=== PATIENT | male | born 1980 | race Caucasian/White ===

== ENCOUNTER 2025-08-17 10:14 | Emergency (ER) | payer OTHER, SELFPAY ==
[2025-08-17 10:15] VITALS: BP 146/91; PULSE 76; RESP 18; TEMP 37.1; O2SAT 98; BMI 30.8
--- NOTE | 2025-08-17 10:27 | RAD_ITS ---
PROCEDURE: SHOULDER MIN 2 VIEWS 08/17/2025 REASON FOR EXAM: INJURY TECHNIQUE: Procedure Code: RADSH Modality: DX Procedure: SHOULDER MIN 2 VIEWS Laterality: Right COMPARISON: None. FINDINGS: Bones: No acute bony abnormalities. Joints: Well aligned. Soft tissues: No soft tissue abnormalities. RAD/Shoulder min 2 Views IMPRESSION: No acute osseous abnormalities. Reading Location: [id number]
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
--- OUTSIDE RECORDS SUMMARY | 2025-08-17 10:49 | XMS RPT_ITS | CCD ---
Author Organization [facility] Care Team Providers Care Slot Floor Person Name Role Phone Alycia Luc Unavailable Unavailable UNKNOWN, PROVIDER Unavailable Unavailable Petrilla, Guillermo Unavailable Unavailable Cullado, Luc Unavailable Unavailable UNKNOWN, PROVIDER Unavailable Unavailable Petrilla, Guillermo Unavailable Unavailable Naunlla Guillermo [place] Primary Care Provider [phone] Guillermo Cheng DO Primary Care Provider Guillermo Cheng DO Primary Care Provider [phone] Dr. Guillermo Cheng DO Primary Care Provider Dr. Guillermo Cheng DO Referring Provider [phone] James ABREU-CMitzy Attending Provider Mitzy Ramirez Attending Unavailable Petrilla, Guillermo Primary Care Unavailable Petrilla, Guillermo Referring Unavailable Mitzy Ramirez Attending Unavailable Petrilla, Guillermo Primary Care Unavailable Petrilla, Guillermo Referring Unavailable Petrilla, Guillermo Primary Care Unavailable Petrilla, Guillermo Referring Unavailable Mitzy Ramirez Attending Unavailable PETRILLA, GUILLERMO Attending Unavailable PETRILLA, GUILLERMO Referring Unavailable PETRILLA, GUILLERMO Primary Care Unavailable PETRILLA, GUILLERMO Primary Care Unavailable PETRILLA, GUILLERMO Attending Unavailable PETRILLA, GUILLERMO Primary Care Unavailable PETRILLA, GUILLERMO Attending Unavailable Medications Current Medications Medication Drug Class(es) Dates Sig (Normalized) Sig (Original) Blood-Glucose Sensor (Dexcom G6 Sensor) device (9 sources) Start: 01-07-2025 Blood-Glucose Sensor (Dexcom G6 Sensor) device Active 0 .Route 3 January 07, 2025 12:00am Type 1 diabetes mellitus with hyperglycemia Type 1 diabetes mellitus with hyperglycemia 1 sensor q 10 days Start: 10-15-2024 End: 01-07-2025 Blood-Glucose Sensor (Dexcom G6 Sensor) device Discontinued 0 .Route 9 October 15, 2024 10:49am January 07, 2025 1:30pm Diabetes mellitus Type 2 diabetes mellitus with hyperglycemia long term acute care registered nurse (current) use of insulin 1 sensor q 10 days Start: 10-15-2024 End: 10-15-2024 Blood-Glucose Sensor (Dexcom G6 Sensor) device Discontinued 0 .Route 9 October 15, 2024 8:29am October 15, 2024 10:49am Diabetes mellitus Type 2 diabetes mellitus with hyperglycemia long term acute care registered nurse (current) use of insulin 1 sensor q 10 days Start: 06-22-2024 End: 10-15-2024 Blood-Glucose Sensor (Dexcom G6 Sensor) device Discontinued 0 .Route 9 June 22, 2024 9:27am October 15, 2024 8:29am Diabetes mellitus Type 2 diabetes mellitus with hyperglycemia long term acute care registered nurse (current) use of insulin 1 sensor q 10 days Start: 05-18-2024 End: 06-22-2024 Blood-Glucose Sensor (Dexcom G6 Sensor) device Discontinued 0 .Route 3 6 May 18, 2024 5:28pm June 22, 2024 9:30am Diabetes mellitus Type 2 diabetes mellitus with hyperglycemia long term acute care registered nurse (current) use of insulin 1 sensor q 10 days Start: 02-28-2024 End: 05-18-2024 Blood-Glucose Sensor (Dexcom G6 Sensor) device Discontinued 0 .Route 3 0 February 28, 2024 9:39am May 18, 2024 5:28pm Diabetes mellitus Type 2 diabetes mellitus with hyperglycemia half-way (current) use of insulin 1 sensor q 10 days Start: 02-27-2024 End: 02-28-2024 Blood-Glucose Sensor (Dexcom G6 Sensor) device Discontinued 0 .Route 3 0 February 27, 2024 12:00am February 28, 2024 9:39am Diabetes mellitus Type 2 diabetes mellitus with hyperglycemia half-way (current) use of insulin 1 sensor q 10 days Start: 08-05-2022 End: 08-05-2022 Blood-Glucose Sensor (Dexcom G6 Sensor) device Discontinued 0 .Route 3 August 05, 2022 3:41pm August 05, 2022 3:51pm Type 1 diabetes mellitus with hyperglycemia Type 1 diabetes mellitus with hyperglycemia 1 sensor q 10 days Start: 08-05-2022 End: 08-05-2022 Blood-Glucose Sensor (Dexcom G6 Sensor) device Discontinued 0 .Route 3 August 05, 2022 12:00am August 05, 2022 3:42pm Type 1 diabetes mellitus with hyperglycemia Type 1 diabetes mellitus with hyperglycemia 1 sensor q 10 days Blood-Glucose Transmitter (Dexcom G6 Transmitter) device (6 sources) Start: 01-07-2025 Blood-Glucose Transmitter (Dexcom G6 Transmitter) device Active 0 .Route 1 January 07, 2025 12:00am Type 1 diabetes mellitus with hyperglycemia Type 1 diabetes mellitus with hyperglycemia 1 sensor q 90 days Start: 06-22-2024 End: 11-01-2024 Blood-Glucose Transmitter (D excom G6 Transmitter) device Discontinued 0 .Route 1 June 22, 2024 9:27am November 01, 2024 4:02pm Diabetes mellitus Type 2 diabetes mellitus with hyperglycemia half-way (current) use of insulin 1 transmitter q 90 days Start: 02-28-2024 End: 06-22-2024 Blood-Glucose Transmitter (D excom G6 Transmitter) device Discontinued 0 .Route 1 February 28, 2024 9:39am June 22, 2024 9:30am Diabetes mellitus Type 2 diabetes mellitus with hyperglycemia long term acute care registered nurse (current) use of insulin 1 transmitter q 90 days Start: 02-27-2024 End: 02-28-2024 Blood-Glucose Transmitter (D excom G6 Transmitter) device Discontinued 0 .Route 1 February 27, 2024 12:00am February 28, 2024 9:39am Diabetes mellitus Type 2 diabetes mellitus with hyperglycemia long term acute care registered nurse (current) use of insulin 1 transmitter q 90 days Start: 08-05-2022 End: 08-05-2022 Blood-Glucose Transmitter (D excom G6 Transmitter) device Discontinued 0 .Route 1 August 05, 2022 3:41pm August 05, 2022 3:51pm Type 1 diabetes mellitus with hyperglycemia Type 1 diabetes mellitus with hyperglycemia 1 transmitter q 90 days Start: 08-05-2022 End: 08-05-2022 Blood-Glucose Transmitter (D excom G6 Transmitter) device Discontinued 0 .Route 1 August 05, 2022 12:00am August 05, 2022 3:42pm Type 1 diabetes mellitus with hyperglycemia Type 1 diabetes mellitus with hyperglycemia 1 transmitter q 90 days Continuous Glucose Sensor (Dexcom G6 Sensor) misc (4 sources) Start: 10-15-2024 Continuous Glucose Sensor (Dexcom G6 Sensor) misc 1 sensor every 10 days 10/15/2024 Active doxycycline hyclate 100 mg oral capsule (3 sources) Tetracycline-class Drug Start: 10-11-2023 End: 10-21-2023 doxycycline (Vibramycin) 100 MG capsule Take 1 capsule (100 mg) by mouth 2 times daily for 10 days. Take with at least 8 ounces (large glass) of water, do not lie down for 30 minutes after 20 capsule 0 10/11/2023 10/21/2023 Active empagliflozin 25 mg oral tablet (6 sources) Sodium-Glucose Cotransporter 2 Inhibitor Start: 01-07-2025 End: 01-08-2025 take 25 mg by mouth once daily Jardiance 25 MG Take 25 mg by mouth daily. 01/08/2025 Active insulin lispro 100 unt/ml injectable solution (15 sources) Insulin Analog Start: 03-20-2024 Insulin Lispro (Humalog) 100 UNIT/ML solution injection Inject under the skin. 03/20/2024 Active Start: 03-20-2024 End: 04-03-2025 Insulin Lispro 100 unit/mL s olution Active 100 U SC DAILY 90 April 03, 2025 10:40am Type 1 diabetes mellitus with hyperglycemia Type 1 diabetes mellitus with hyperglycemia via insulin pump Start: 02-09-2024 End: 06-22-2024 Insulin Lispro 100 unit/mL i nsulin pen Discontinued 25 U SC THREE TIMES A DAY 15 April 05, 2024 10:33pm June 22, 2024 9:27am Type 1 diabetes mellitus with hyperglycemia Type 1 diabetes mellitus with hyperglycemia Insulin Pump Cart,Auto,Bt,G6 /7 (Omnipod 5 G6-G7 Pods (Gen 5)) cartridge (4 sources) Start: 05-20-2025 Insulin Pump C art,Auto,Bt,G6/7 (Omnipod 5 G6-G7 Pods (Gen 5)) cartridge Active 0 .Route 5 May 20, 2025 12:00am As directed Start: 04-03-2025 Insulin Pump C art,Auto,Bt,G6/7 (Omnipod 5 G6-G7 Pods (Gen 5)) cartridge Active 0 .Route 45 April 03, 2025 10:39am change every 36 hrs Start: 01-07-2025 End: 04-03-2025 Insulin Pump Cart,Auto,Bt,G6 /7 (Omnipod 5 G6-G7 Pods (Gen 5)) cartridge Discontinued 0 .Route 45 3 January 07, 2025 2:03pm April 03, 2025 10:40am change every 36 hrs Start: 11-01-2024 End: 01-07-2025 Insulin Pump Cart,Auto,Bt,G6 /7 (Omnipod 5 G6-G7 Pods (Gen 5)) cartridge Discontinued 0 .Route 30 3 November 01, 2024 1:00am January 07, 2025 2:04pm change every 3 days lisinopril 20 mg oral tablet (20 sources) Angiotensin Converting Enzyme Inhibitor Start: 07-22-2025 End: 07-23-2025 lisinopril 20 MG tablet One bid 180 tablet 1 07/23/2025 Active Start: 02-14-2025 End: 07-22-2025 lisinopril 10 MG tablet Take one 10 mg tab with a 30 mg tab q day to equal 40mg each day until they are gone, then call for 20mg tab prescription which should be taken one BID 50 tablet 1 02/14/2025 07/22/2025 Discontinued (Dose adjustment) Start: 02-11-2025 End: 02-11-2025 lisinopril 20 MG tablet One BID 180 tablet 1 02/11/2025 02/11/2025 Discontinued Start: 11-20-2022 End: 08-08-2025 take 1 tablet by mouth once daily Lisinopril 30 mg tablet Active 30 mg PO DAILY February 09, 2024 3:16pm Start: 08-05-2022 End: 02-09-2024 Lisinopril 30 mg tablet Disc ontinued NMA PO August 05, 2022 12:00am February 09, 2024 3:17pm Multivitamin (Daily Multi-Vitamin) tablet (1 source) Start: 08-05-2022 Multivitamin (Daily Multi-Vitamin) tablet Active 1 {tbl} PO DAILY August 05, 2022 12:00am rosuvastatin calcium 10 mg oral tablet (20 sources) HMG-CoA Reductase Inhibitor Start: 10-16-2023 End: 02-06-2026 take 1 tablet by mouth once daily rosuvastatin (Crestor) 10 MG tablet Take 1 tablet (10 mg) by mouth Nightly for 360 doses. 90 tablet 1 02/11/2025 02/06/2026 Active Start: 11-29-2022 End: 10-16-2023 take 1 tablet by mouth once daily rosuvastatin (Crestor) 5 MG tablet Take 1 tablet (5 mg) by mouth Nightly. 90 tablet 1 06/22/2023 10/16/2023 Discontinued Start: 08-05-2022 End: 10-20-2023 Rosuvastatin 5 mg tablet Discontinued NMA PO August 05, 2022 12:00am October 20, 2023 12:57pm sertraline 25 mg oral tablet (11 sources) Serotonin Reuptake Inhibitor Start: 05-17-2024 End: 02-11-2025 take 1 tablet by mouth once daily sertraline (Zoloft) 25 MG tablet Take 1 tablet (25 mg) by mouth daily. 90 tablet 1 02/11/2025 Active therapeutic multivitamin-minera ls (Theragran-M) tablet (18 sources) take 1 tablet by mouth once daily therapeutic multivitamin-blasting contract miner als (Theragran-M) tablet Take 1 tablet by mouth daily. Active take 1 tablet by mouth once josi y therapeutic multivitamin-minerals (Theragran- M) tablet Take 1 tablet by mouth daily. 0 Active Completed/Discontinued Medications Medication Drug Class(es) Dates Sig (Normalized) Sig (Original) [id number] actuat albuterol 0.09 mg/actuat metered dose inhaler (6 sources) beta2-Adrenergic Agonist Start: 10-11-2023 End: 10-10-2024 take 2 puff(s) by inhalation every four hours as needed for wheezing albuterol (Ventolin HFA) 108 (90 Base) MCG/ACT inhaler Inhale 2 puffs every 4 hours as needed for wheezing or shortness of breath. 8 g 5 10/11/2023 08/13/2024 Discontinued (Therapy completed) Blood-Glucose Sensor (Dexcom G7 Sensor) device (1 source) Start: 11-01-2024 End: 01-07-2025 Blood-Glucose Sensor (Dexcom G7 Sensor) device Discontinued 0 .Route 9 3 November 01, 2024 1:00am January 07, 2025 1:44pm As directed Blood-Glucose Sensor (Freestyle Malcom 3 Sensor) device (3 sources) Start: 05-27-2023 End: 10-20-2023 Blood-Glucose Sensor (Freestyle Malcom 3 Sensor) device Discontinued 0 .Route 6 1 May 27, 2023 12:44pm October 20, 2023 1:39pm 1 sensor q 14 days Start: 12-27-2022 End: 05-27-2023 Blood-Glucose Sensor (Freest yle Malcom 3 Sensor) device Discontinued 0 .Route 6 1 December 27, 2022 12:00am May 27, 2023 12:44pm 1 sensor q 14 days Start: 08-05-2022 End: 08-05-2022 Blood-Glucose Sensor (Freest yle Malcom 3 Sensor) device Discontinued 0 .Route 2 August 05, 2022 12:00am August 05, 2022 3:51pm Type 1 diabetes mellitus with hyperglycemia Type 1 diabetes mellitus with hyperglycemia As directed Blood-Glucose,Purse Seiner,Cont (Dexcom G6 Purse Seiner) misc (2 sources) Start: 08-05-2022 End: 08-05-2022 Blood-Glucose,Purse Seiner,Cont (Dexcom G6 Purse Seiner) misc Discontinued 0 .Route 1 0 August 05, 2022 3:41pm August 05, 2022 3:51pm Type 1 diabetes mellitus with hyperglycemia Type 1 diabetes mellitus with hyperglycemia As directed Start: 08-05-2022 End: 08-05-2022 Blood-Glucose,Purse Seiner,Cont (Dexcom G6 Purse Seiner) misc Discontinued 0 .Route 1 August 05, 2022 12:00am August 05, 2022 3:42pm Type 1 diabetes mellitus with hyperglycemia Type 1 diabetes mellitus with hyperglycemia As directed Continuous Blood Gluc Sensor (FreeStyle Malcom 2 Sensor) misc (14 sources) Start: 06-01-2023 End: 08-13-2024 Continuous Blood Gluc Sensor (FreeStyle Malcom 2 Sensor) misc Use qid and prn 1 each 1 06/01/2023 08/13/2024 Discontinued Start: 06-01-2023 Continuous Blo od Gluc Sensor (FreeStyle Malcom 2 Sensor) misc Use qid and prn 1 each 1 06/01/2023 Active Start: 05-27-2023 End: 05-31-2023 Continuous Blood Gluc Sensor (FreeStyle Malcom 2 Sensor) misc Use qid and prn 1 each 1 05/27/2023 05/31/2023 Discontinued (Reorder) Start: 05-27-2023 Continuous Blo od Gluc Sensor (FreeStyle Malcom 2 Sensor) misc Use qid and prn 1 each 1 05/27/2023 Active Start: 08-19-2022 End: 05-27-2023 Continuous Blood Gluc Sensor (FreeStyle Malcom 2 Sensor) misc Start: 08-19-2022 Continuous Blo od Gluc Sensor (FreeStyle Malcom 2 Sensor) misc Dulaglutide (1 source) GLP-1 Receptor Agonist Start: 08-05-2022 End: 12-27-2022 Dulaglutide (Trulicity) 4.5 mg/0.5 mL pen injector Discontinued mL SC August 05, 2022 12:00am December 27, 2022 2:05pm Flash Glucose Scanning [place] (Freestyle Malcom 2 [place]) misc (1 source) Start: 08-05-2022 End: 08-05-2022 Flash Glucose Scanning [place] (Freestyle Malcom 2 [place]) misc Discontinued 0 .Route 1 0 August 05, 2022 12:00am August 05, 2022 3:51pm Diabetes mellitus Type 2 diabetes mellitus without complications As directed Flash Glucose Sensor (Freestyle Malcom 2 Sensor) kit (8 sources) Start: 04-05-2024 End: 06-22-2024 Flash Glucose Sensor (Freestyle Malcom 2 Sensor) kit Discontinued 0 .ROUTE .MEDSUPPLY 2 4 April 05, 2024 10:33pm June 22, 2024 9:27am Type 1 diabetes mellitus with hyperglycemia Type 1 diabetes mellitus with hyperglycemia 1 sensor q 14 days Start: 02-20-2024 End: 04-05-2024 Flash Glucose Sensor (Freest yle Malcom 2 Sensor) kit Discontinued 0 .ROUTE .MEDSUPPLY 2 0 February 20, 2024 8:13am April 05, 2024 10:33pm Type 1 diabetes mellitus with hyperglycemia Type 1 diabetes mellitus with hyperglycemia 1 sensor q 14 days Start: 02-09-2024 End: 02-20-2024 Flash Glucose Sensor (Freest yle Malcom 2 Sensor) kit Discontinued 0 .ROUTE .MEDSUPPLY 2 5 February 09, 2024 4:31pm February 20, 2024 8:14am Type 1 diabetes mellitus with hyperglycemia Type 1 diabetes mellitus with hyperglycemia 1 sensor q 14 days Start: 10-20-2023 End: 02-09-2024 Flash Glucose Sensor (Freest yle Malcom 2 Sensor) kit Discontinued 0 .ROUTE .MEDSUPPLY 6 October 20, 2023 1:38pm February 09, 2024 4:35pm Type 1 diabetes mellitus with hyperglycemia Type 1 diabetes mellitus with hyperglycemia 1 sensor q 14 days Start: 09-14-2023 End: 10-20-2023 Flash Glucose Sensor (Freest yle Malcom 2 Sensor) kit Discontinued 0 .ROUTE .MEDSUPPLY 2 September 14, 2023 5:22pm October 20, 2023 1:39pm Type 1 diabetes mellitus with hyperglycemia Type 1 diabetes mellitus with hyperglycemia 1 sensor q 14 days Start: 01-13-2023 End: 09-14-2023 Flash Glucose Sensor (Freest yle Malcom 2 Sensor) kit Discontinued 0 .ROUTE .MEDSUPPLY 2 January 13, 2023 12:00am September 14, 2023 5:23pm Type 1 diabetes mellitus with hyperglycemia Type 1 diabetes mellitus with hyperglycemia 1 sensor q 14 days Start: 09-30-2022 End: 12-27-2022 Flash Glucose Sensor (Freest yle Malcom 2 Sensor) kit Discontinued 0 .Route 4 2 September 30, 2022 3:25pm December 27, 2022 2:24pm Diabetes mellitus Type 2 diabetes mellitus without complications As directed Start: 08-05-2022 End: 09-30-2022 Flash Glucose Sensor (Freest yle Malcom 2 Sensor) kit Discontinued 0 .Route 2 August 05, 2022 12:00am September 30, 2022 3:25pm Diabetes mellitus Type 2 diabetes mellitus without complications As directed glimepiride 4 mg oral tablet (1 source) Sulfonylurea Start: 08-05-2022 End: 08-05-2022 Glimepiride 4 mg tablet Discontinued NMA PO August 05, 2022 12:00am August 05, 2022 1:57pm 3 ml insulin aspart, human 100 unt/ml pen injector (16 sources) Insulin Analog Start: 12-06-2022 End: 08-13-2024 Fiasp FlexTouch 100 UNIT/ML injection 12 units at meals and 6 units with snacks 12/06/2022 08/13/2024 Discontinued Start: 08-05-2022 End: 02-09-2024 Insulin Aspart (Niacinamide) (Fiasp Flextouch U-100 Insulin) 100 unit/mL (3 mL) insulin pen Discontinued 15 U SC THREE TIMES A DAY 40.5 1 February 03, 2024 9:05am February 09, 2024 4:31pm Diabetes mellitus Type 2 diabetes mellitus without complications 3 ml insulin detemir 100 unt/ml pen injector (16 sources) Insulin Analog Start: 06-01-2023 End: 08-13-2024 Levemir FlexPen 100 UNIT/ML pen INJECT 23 UNITS UNDER THE SKIN NIGHTLY. 100 mL 2 02/03/2024 08/13/2024 Discontinued (Therapy completed) Start: 12-01-2022 End: 05-31-2023 Levemir FlexTouch 100 UNIT/M L pen 23 units at bedtime 0 12/01/2022 05/31/2023 Discontinued (Reorder) Start: 08-05-2022 End: 02-09-2024 Insulin Detemir U-100 (Levem ir Flextouch U-100 Insuln) 100 unit/mL (3 mL) insulin pen Discontinued 40 U SC AT BEDTIME 36 1 January 07, 2023 7:44am February 09, 2024 4:29pm Diabetes mellitus Type 2 diabetes mellitus without complications Insulin Pump Cart,Auto,Bt-Cn tr (Omnipod 5 G6 Intro Kit (Gen 5)) cartridge (2 sources) Start: 02-28-2024 End: 11-01-2024 Insulin Pump Cart,Auto,Bt-Cn tr (Omnipod 5 G6 Intro Kit (Gen 5)) cartridge Discontinued 0 .Route 1 February 28, 2024 9:39am November 01, 2024 4:02pm Diabetes mellitus Type 2 diabetes mellitus with hyperglycemia half-way (current) use of insulin As directed Start: 02-27-2024 End: 02-28-2024 Insulin Pump Cart,Auto,Bt-Cn tr (Omnipod 5 G6 Intro Kit (Gen 5)) cartridge Discontinued 0 .Route 1 February 27, 2024 12:00am February 28, 2024 9:39am Diabetes mellitus Type 2 diabetes mellitus with hyperglycemia long term acute care registered nurse (current) use of insulin As directed Insulin Pump Cart,Automated, Bt (Omnipod 5 G6 Pods (Gen 5)) cartridge (3 sources) Start: 06-22-2024 End: 11-01-2024 Insulin Pump Cart,Automated, Bt (Omnipod 5 G6 Pods (Gen 5)) cartridge Discontinued 0 .Route 10 June 22, 2024 9:30am November 01, 2024 4:02pm Diabetes mellitus Type 2 diabetes mellitus with hyperglycemia half-way (current) use of insulin 1 pod q 72 hours Start: 02-28-2024 End: 06-22-2024 Insulin Pump Cart,Automated, Bt (Omnipod 5 G6 Pods (Gen 5)) cartridge Discontinued 0 .Route 10 February 28, 2024 9:39am June 22, 2024 9:30am Diabetes mellitus Type 2 diabetes mellitus with hyperglycemia long term acute care registered nurse (current) use of insulin 1 pod q 72 hours Start: 02-27-2024 End: 02-28-2024 Insulin Pump Cart,Automated, Bt (Omnipod 5 G6 Pods (Gen 5)) cartridge Discontinued 0 .Route 10 February 27, 2024 12:00am February 28, 2024 9:39am Diabetes mellitus Type 2 diabetes mellitus with hyperglycemia long term acute care registered nurse (current) use of insulin 1 pod q 72 hours metFORMIN hydrochloride 500 mg oral tablet (1 source) Biguanide Start: 08-05-2022 End: 12-27-2022 Metformin 500 mg tablet Discontinued NMA PO August 05, 2022 12:00am December 27, 2022 2:05pm Ozempic, 0.25 or 0.5 MG/DOSE, 2 MG/3ML solution pen-injector (10 sources) Start: 04-14-2023 End: 02-11-2025 inject 0.5 mg by subcutaneous injection every week Ozempic, 0.25 or 0.5 MG/DOSE, 2 MG/3ML solution pen-injector 0.5 MG (0.8 ML) SUBCUTANEOUSLY EVERY WEEK 04/14/2023 02/11/2025 Discontinued (Cost of medication) Start: 04-14-2023 inject 0.5 mg by sub cutaneous injection every week Ozempic, 0.25 or 0.5 MG/DOSE, 2 MG/3ML solution pen-injector 0.5 MG (0.8 ML) SUBCUTANEOUSLY EVERY WEEK 04/14/2023 Active Start: 04-14-2023 inject 0.5 mg by sub cutaneous injection every week Ozempic, 0.25 or 0.5 MG/DOSE, 2 MG/3ML solution pen-injector 0.5 MG (0.8 ML) SUBCUTANEOUSLY EVERY WEEK 0 04/14/2023 Active Semaglutide (5 sources) Start: 08-16-2024 End: 09-19-2024 Semaglutide (Ozempic) 0.25 m g or 0.5 mg (2 mg/3 mL) pen injector Discontinued 0.5 mg SC EVERY WEEK 3 August 16, 2024 5:09pm September 19, 2024 3:14pm Diabetes mellitus Type 2 diabetes mellitus without complications Start: 06-22-2024 End: 08-16-2024 Semaglutide (Ozempic) 0.25 m g or 0.5 mg (2 mg/3 mL) pen injector Discontinued 0.5 mg SC EVERY WEEK 3 June 22, 2024 9:29am August 16, 2024 5:10pm Diabetes mellitus Type 2 diabetes mellitus without complications Start: 02-09-2024 End: 06-22-2024 Semaglutide (Ozempic) 0.25 m g or 0.5 mg (2 mg/3 mL) pen injector Discontinued 0.5 mg SC EVERY WEEK 3 February 09, 2024 12:00am June 22, 2024 9:30am Diabetes mellitus Type 2 diabetes mellitus without complications Start: 07-06-2023 End: 10-20-2023 Semaglutide (Ozempic) 0.25 m g or 0.5 mg (2 mg/3 mL) pen injector Discontinued 0.5 mg SC EVERY WEEK 3 July 06, 2023 12:41pm October 20, 2023 1:39pm Start: 04-14-2023 End: 07-04-2023 Semaglutide (Ozempic) 0.25 m g or 0.5 mg (2 mg/3 mL) pen injector Discontinued 0.5 mg SC EVERY WEEK 3 April 14, 2023 12:00am July 04, 2023 8:20am Semaglutide (1 source) Start: 07-04-2023 End: 07-06-2023 Semaglutide (Ozempic) 1 mg/d ose (4 mg/3 mL) pen injector Discontinued 1 mg SC EVERY WEEK 3 3 July 04, 2023 12:00am July 06, 2023 12:42pm Type 1 diabetes mellitus with hyperglycemia Type 1 diabetes mellitus with hyperglycemia Problems Active Problems Problem Classification Problem Date Documented Date Episodic/Chronic Anxiety disorders (11 sources) Mixed anxiety and depressive disorder; Translations: [Anxiety disorder, unspecified] Onset: 08-13-2024 08-13-2024 Chronic Chronic obstructive pulmonary disease and bronchiectasis (1 source) Bronchitis; Translations: [Bronchitis, not specified as acute or chronic] 10-11-2023 Episodic Diabetes mellitus with complications (3 sources) Hyperglycemia due to type 1 diabetes mellitus; Translations: [Type 1 diabetes mellitus with hyperglycemia] Onset: 06-03-2025 09-30-2022 Chronic Diabetes mellitus without complication (20 sources) Type 2 diabetes mellitus without complications; Translations: [Type 1 diabetes mellitus without complication] Onset: 09-30-2017 Resolved: 08-13-2024 Chronic Disorders of lipid metabolism (20 sources) Hypercholesterolemia; Translations: [Pure hypercholesterolemia, unspecified] Onset: 08-02-2019 07-23-2022 Chronic Essential hypertension (20 sources) Essential (primary) hypertension; Translations: [Essential hypertension] Onset: 09-30-2017 07-23-2022 Chronic Genitourinary symptoms and ill-defined conditions (2 sources) Microalbuminuria; Translations: [Proteinuria, unspecified] Onset: 06-03-2025 01-07-2025 Episodic Mood disorders (1 source) Depressive disorder; Translations: [Depression] 05-17-2024 Chronic Mood disorders (3 sources) Mood disorders; Translations: [Depression, unspecified] Onset: 08-13-2024 Other aftercare (1 source) long term acute care registered nurse current use of non-steroidal anti-inflammatory drug; Translations: [half-way (current) use of non-steroidal anti-inflammatories (NSAID)] 05-17-2024 Episodic Other endocrine disorders (2 sources) Testicular hypofunction; Translations: [Testicular hypofunction] Onset: 09-30-2017 Chronic Other nervous system disorders (3 sources) Left arm peripheral neuropathy; Translations: [Unspecified mononeuropathy of left upper limb] 02-11-2025 Chronic Other nervous system disorders (2 sources) Unspecified mononeuropathy of left upper limb; Translations: [Unspecified mononeuropathy of left upper limb] Onset: 03-01-2025 Chronic Other nutritional; endocrine; and metabolic disorders (2 sources) Overweight; Translations: [Overweight] Onset: 09-30-2017 Chronic Other nutritional; endocrine; and metabolic disorders (1 source) Obesity; Translations: [Obesity, unspecified] 04-14-2023 Chronic Other nutritional; endocrine; and metabolic disorders (1 source) Other obesity due to excess calories; Translations: [Other obesity due to excess calories] Onset: 08-16-2024 Chronic Other nutritional; endocrine; and metabolic disorders (1 source) Body mass index (BMI) 32.0-32.9, adult; Translations: [Body mass index [BMI] 32.0-32.9, adult] Onset: 08-16-2024 Chronic Unclassified (2 sources) half-way (current) use of oral hypoglycemic drugs; Translations: [half-way (current) use of oral hypoglycemic drugs] Onset: 09-30-2017 Past or Other Problems Problem Classification Problem Date Documented Date Episodic/Chronic Abdominal hernia (2 sources) Unilateral inguinal hernia, without obstruction or gangrene, not specified as recurrent; Translations: [Unil inguinal hernia, w/o obst or gangr, not spcf as recur] Onset: 09-30-2017 Episodic Diabetes mellitus without complication (2 sources) Insulin pump present; Translations: [Presence of insulin pump (external) (internal)] Onset: 08-16-2024 05-17-2024 Episodic Medical examination/evaluatio n (2 sources) Encounter for other preprocedural examination; Translations: [Encounter for other preprocedural examination] Onset: 09-27-2017 Episodic Other aftercare (3 sources) half-way (current) use of insulin; Translations: [long term acute care registered nurse (current) use of insulin] Onset: 07-23-2022 Episodic Other endocrine disorders (2 sources) Endocrine disorder, unspecified; Translations: [Endocrine disorder, unspecified] Onset: 09-30-2017 Episodic Unclassified (2 sources) Body mass index (BMI) 27.0-27.9, adult; Translations: [Body mass index (BMI) 27.0-27.9, adult] Onset: 09-30-2017 Episodic Viral infection (18 sources) Disease caused by 2019-nCoV; Translations: [COVID-19] Onset: 01-04-2022 Resolved: 08-13-2024 07-23-2022 Episodic Results Test Name Value Interpretation Reference Range Facility 36on 07-22-2025 36 Rx loaded Normal [facility] Endocrinology Visit Reporton 06-03-2025 Endocrinology Visit Report [facility] [address] [place] [address] OFFICE VISIT Date of Service: 06/03/25 MR#: [id number] Acct: [id number] Name: SATHYA MONTOYA Rep #: [id number] : 1980 Provider: ELINOR sharp Age/Sex: 44/M [place] [facility] [place]: Signed Intake Vital Signs 01/07/25 13:27 06/03/25 13:24 Height 6 ft 3 in 6 ft 3 in Weight: 253 lb 8 oz 246 lb BMI 31.6 30.7 BP 148/85 H 146/74 H Blood Pressure Location Lt brachial Lt brachial Position Sitting Sitting Pulse 68 64 Pulse Source Monitor Monitor Pulse Oximetry (%) 95 95 Oxygen Delivery Method room air room air Intake Visit Reasons: 5 M KALLIE MARY 12/13 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 Accompanied by: Self Is patient in pain?: No Allergies No Known Allergies Allergy (Verified 06/03/25 13:22) Medications ???Medication ???Instructions ???Recorded ???Confirmed ???Type multivitamin (Daily Multi-Vitamin 1 tab PO DAILY 08/05/22 06/03/25 History tablet) pen needle, diabetic 32 gauge x #100 ea 10/20/23 06/03/25 Rx / (BD Ultra-Fine Sandie Pen Needle) rosuvastatin 10 mg tablet 10 mg PO DAILY 10/20/23 06/03/25 H istory lisinopril 30 mg tablet 30 mg PO DAILY 02/09/24 06/03/25 H istory sertraline 25 mg tablet 25 mg PO DAILY #90 tabs 09/20/24 0 06/03/25 Rx blood-glucose sensor (Dexcom G6 #3 ea 01/07/25 06/03/25 Rx Sensor device) blood-glucose transmitter (Dexcom #1 ea 01/07/25 06/03/25 Rx G6 Transmitter device) empagliflozin 25 mg tablet 25 mg PO QAM #30 tabs 01/08/25 Rx (Jardiance) Omnipod 5 G6-G7 Pods (Gen 5) #45 ea 04/03/25 06/03/25 Rx (insulin pump cart,auto,BT,G6/7) insulin lispro 100 unit/mL 100 unit subcut DAILY #90 mL 04/0306/03/25 Rx subcutaneous solution insulin pump cart,auto,BT,G6/7 #5 ea 05/20/25 06/03/25 Rx (Omnipod 5 G6-G7 Pods (Gen 5) subcutaneous cartridge) PFSH Medical History Lymphoma Hernia Family History Other CVA (cerebral vascular accident) Diabetes Hypertension Social History Smoking Status: Never smoker alcohol intake: current alcohol intake frequency: a few times a month Alcohol type: beer substance use type: does not use what type of physical activity do you participate in: other details: crossfit frequency: 5-6 times per week HPI HPI Chief Complaint: f/u diabetes Details: SATHYA MONTOYA, is a 44 M who presents to the office today for evaluation and management of diabetes. A1C today is 7.0%, improved from 01/07/25 at 7.3%. He has lost 7 lbs since that time. He has been making an effort to improve diet. Currently using Omnipod 5 with Dexcom G6. CGM tracings downloaded and reviewed- he is estimating carbs, he is having post meal elevations. Denies any significant episode of hypoglycemia that has required assistance from others. BP stable. Currently taking lisinopril 30 mg once daily. He has microalbuminuria and is taking SGLT2. He takes a daily statin. He takes an SSRI for chronic depression, he is feeling well overall. He will be due for labs this fall. Denies any acute concerns. ROS Const Constitutional: No fatigue, weakness, weight change or change in appetite Eyes Eyes: No change in vision ENT ENT: No hearing loss, nasal congestion or difficulty swallowing Cardio Cardiology: No chest pain at rest, chest pain with exertion or shortness of breath Musc Musculoskeletal: No numbness Neuro Neurology: No weakness, memory loss or numbness Psych Psychiatric: No change in appetite, No memory loss and No Thoughts of harming yourself/Others Resp Respiratory: No cough or chest congestion Gastro GI: No difficulty swallowing Genitourinary Male: No burning urination Skin Skin: No itchy eyes or wounds Endo Endocrine: No fatigue or weight change Aller/Imm Allergy/Immunologic: No itchy eyes Exam Const General: cooperative, healthy appearing, comfortable and no acute distress Nutritional Appearance: obese Orientation: alert, awake and oriented x3 HENMT Head: normal to inspection Ears: hearing grossly normal bilaterally Nose: external nose normal Face and sinus: normal facial exam Eyes General: appearance normal, both eyes and all related structures Alignment and Position: alignment normal Sclera: sclerae normal Neck Neck: normal visual inspection Chest Chest palpation inspection: normal inspection of the chest Resp Effort Inspection: normal respiratory effort, able to speak in complete sentences, symmetric chest movement, normal respiratory pattern, no audible wheez (more content not included)... Normal [facility] [id number] 02-14-2025 [id number] Rx reloaded to corrected pharmacy. Normal [facility] [id number] 02-12-2025 [id number] Rx loaded Normal [facility] 36on 02-12-2025 36 Orders pended for dx and doctor's signature Normal [facility] 37on 02-11-2025 37 Call with the number of lisinopril tablets you have so we can adjust the dosage. Normal [facility] ECG 12 leadon 02-11-2025 [facility] Office Visiton 02-11-2025 Follow-up visit [id number] Sathya Montoya 1980 M Date Provider Department Center 02/11/2025 [id number] BLAKE [facility] Family History Problem Relation Age of Onset Diabetes Mother Comments: insulin age 65 Dementia Father 65 Comments: non smoker High Blood Pressure Father Diabetes Father Comments: insulion amputated toes Stroke Father Comments: 07/31 brainstem CVA age 69 Diabetes Sister Comments: oral rx Diabetes Maternal Grandmother Throat cancer Maternal Grandmother Diabetes Maternal Grandfather Diabetes Paternal Grandmother Suicide Paternal Grandfather Family Status - Relation Status Age at Mother Alive Father Sister Alive Daughter Alive Son Alive Maternal Grandmother Maternal Grandfather Paternal Grandmother Paternal Grandfather Level of Service:70503 SC OFFICE/OUTPATIENT ESTABLISHED MOD MDM 30 MIN Reason for Visit and Comments: Follow-up [417878] - Med check Tingling [270995] - Left hand since Tuesday Normal [facility] Progress Noteon 02-11-2025 Progress Note [facility] - [address] [facility] [id number] Visit type: Established Patient Reason for Visit: Follow-up (Med check) and Tingling (Left hand since Tuesday ) Assessment / Plan: Sathya was seen today for follow-up and tingling. Diagnoses and all orders for this visit: Essential hypertension (Primary) Comments: Uncontrolled, will increase lisinopril to 20 mg twice daily, BP check 4 weeks Orders: - ECG 12 lead; Future - ECG 12 lead Hypercholesteremia Comments: Stable, continue low-fat meals and Crestor check labs soon Orders: - Lipid panel; Future - Lipid panel Type 1 diabetes mellitus without complication (HCC) Comments: Uncontrolled, restart Jardiance and follow-up with endocrinology Orders: - Comprehensive metabolic panel; Future - CBC auto differential; Future - Comprehensive metabolic panel - CBC auto differential Anxiety and depression Comments: Stable, continue Zoloft Neuropathy of left upper extremity Comments: New onset, check EMG, where left wrist cock up splints and left tennis elbow wrap Other orders - rosuvastatin (Crestor) 10 MG tablet; Take 1 tablet (10 mg) by mouth Nightly for 360 doses. - sertraline (Zoloft) 25 MG tablet; Take 1 tablet (25 mg) by mouth daily. - Discontinue: lisinopril 20 MG tablet; One BID Subjective: Patient ID: Sathya Montoya is a 44 y.o. male. HPI type I diabetic on insulin and Jardiance history of hypertension hyperlipidemia presents for checkup. A1c not at goal and recently was placed on Jardiance. GLP-1 agonist were not covered by insurance. Has felt good except for having 3 to 4 months of left forearm pain with rotation. Also developing some numbness in the dorsum of his left wrist and thumb and first 2 fingers. It is worse in the morning. However it occurs all day. Denies exertional chest pain shortness of breath. Symptoms do not worsen with vigorous activity that he does not work. Able to workout aggressively lifting weights and running as well. Review of Systems no change in his vision. No recent earache sore throat or cough. No chest pain palpitations or dyspnea or jaw pain. Denies PND orthopnea claudication or edema. No abdominal pain. Bowels are regular. No melena or blood. No dysuria. No unhealing skin lesions. Very excited about taking his adopted daughter on vacation this summer. Will be taking his whole family to [place] and enjoying a cruise. He denies neck pain or increase of his pain and arm symptoms with Valsalva maneuvers. Rare use of NSAIDs or Tylenol no lower extremity complaints No Known Allergies Current Outpatient Medications: Continuous Glucose Sensor (Dexcom G6 Sensor) misc, 1 sensor every 10 days, Disp: , Rfl: Insulin Lispro (Humalog) 100 UNIT/ML solution injection, Inject under the skin., Disp: , Rfl: Jardiance 25 MG, Take 25 mg by mouth daily., Disp: , Rfl: therapeutic multivitamin-minerals (Theragran-M) tablet, Take 1 tablet by mouth daily., Disp: , Rfl: rosuvastatin (Crestor) 10 MG tablet, Take 1 tablet (10 mg) by mouth Nightly for 360 doses., Disp: 90 tablet, Rfl: 1 sertraline (Zoloft) 25 MG tablet, Take 1 tablet (25 mg) by mouth daily., Disp: 90 tablet, Rfl: 1 Patient Active Problem List Diagnosis Essential hypertension Hypercholesteremia Anxiety and depression Type 1 diabetes (HCC) Social History Tobacco Use Smoking status: Never Smokeless tobacco: Never Substance Use Topics Alcohol use: Yes Alcohol/week: 1.0 standard drink of alcohol Past Surgical History: Procedure Laterality Date HERNIA REPAIR Right 2017 robotic assisted, lap WISDOM TOOTH EXTRACTION 1998 WRIST SURGERY Left 2015 [place] Family History Problem Relation Name Age of Onset Diabetes Mother insulin age 65 Dementia Father Simon 65 non smoker High Blood Pressure Father Simon Diabetes Father Simon insulion amputated toes Stroke Father Simon 07/31 brainstem CVA age 69 Diabetes Sister oral rx Diabetes Maternal Grandmother Throat cancer Maternal Grandmother Diabetes Maternal Grandfather Diabetes Paternal Grandmother Suicide Paternal Grandfather Objective: BP (!) 145/84 (BP Location: Left arm, Patient Position: Sitting, BP Cuff Size: Large adult) Pulse 69 Temp 36.4 ?C (97.5 ?F) (Temporal) Ht 6' 2 (1.88 m) Wt 252 lb (114 kg) SpO2 97% BMI 32.35 kg/m? Physical Exam The physical exam is generally normal. Patient appears well, alert and oriented x 3, pleasant, cooperative. Vitals are as noted. Neck supple, no carotid bruits abnormal adenopathy, thyroid lesions or masses.. Lungs are clear to auscultation. Heart is regular, without murmurs, gallops or ectopy. Abdomen is soft, non tender, without masses, hepatosplenomegaly, or bruits. Normal BS evident. Extremities are normal without edema. Peripheral pulses are good. No worrisome skin lesions. Screening neurological exam is nor (more content not included)... Normal [facility] Endocrinology Visit Reporton 01-07-2025 Endocrinology Visit Report [facility] [address] [place] [address] OFFICE VISIT Date of Service: 01/07/25 MR#: [id number] Acct: [id number] Name: SATHYA MONTOYA Rep #: [id number] : 1980 Provider: ELINOR sharp Age/Sex: 44/M [place] [facility] [place] Status: Signed Intake Vital Signs 08/16/24 15:30 01/07/25 13:27 Height 6 ft 3 in 6 ft 3 in Weight: 242 lb 253 lb 8 oz BMI 30.2 31.6 BP 128/86 H 148/85 H Blood Pressure Location Rt brachial Lt brachial Position Sitting Sitting Pulse 75 68 Pulse Source Monitor Monitor Pulse Oximetry (%) 97 95 Oxygen Delivery Method room air room air Intake Visit Reasons: 5 M KALLIE MARY 12/13 Chief Complaint: f/u diabetes Is patient in pain?: No Allergies No Known Allergies Allergy (Verified 01/07/25 13:30) Medications ???Medication ???Instructions ???Recorded ???Confirmed ???Type multivitamin (Daily Multi-Vitamin 1 tab PO DAILY 08/05/22 01/07/25 History tablet) pen needle, diabetic 32 gauge x #100 ea 10/20/23 05/17/24 Rx /32 (BD Ultra-Fine Sandie Pen Needle) rosuvastatin 10 mg tablet 10 mg PO DAILY 10/20/23 01/07/25 H istory lisinopril 30 mg tablet 30 mg PO DAILY 02/09/24 01/07/25 H istory insulin lispro 100 unit/mL 100 unit subcut DAILY #90 mL 09/1901/07/25 Rx subcutaneous solution sertraline 25 mg tablet 25 mg PO DAILY #90 tabs 09/20/24 0 01/07/25 Rx Omnipod 5 G6-G7 Pods (Gen 5) #45 ea 01/07/25 01/07/25 Rx (insulin pump cart,auto,BT,G6/7) blood-glucose sensor (Dexcom G6 #3 ea 01/07/25 01/07/25 Rx Sensor device) blood-glucose transmitter (Dexcom #1 ea 01/07/25 01/07/25 Rx G6 Transmitter device) empagliflozin 25 mg tablet 25 mg PO QAM #30 tabs 01/07/25 Rx (Jardiance) PFSH Medical History Lymphoma Hernia Family History Other CVA (cerebral vascular accident) Diabetes Hypertension Social History Smoking Status: Never smoker alcohol intake: current alcohol intake frequency: a few times a month Alcohol type: beer substance use type: does not use what type of physical activity do you participate in: other details: crossfit frequency: 5-6 times per week HPI HPI Chief Complaint: f/u diabetes Details: SATHYA MONTOYA, is a 44 M who presents to the office today for evaluation and management of diabetes. A1C today is 7.3%, increased from 08/16/24 at 6.8%. He has gained 11 lbs since that time. Currently using Omnipod 5 with Dexcom G7 CGM- He is not happy with G7 upgrade. He is changing pods frequently. Glooko report downloaded and reviewed- he is having post meal elevations, he is estimating carbohydrates. He denies any significant episode of hypoglycemia that has required assistance from others. BP controlled. Currently taking lisinopril 30 mg once daily. He takes a daily statin. He takes sertraline 25 mg once daily with improved symptoms. Labs are up to date and unremarkable. Reports he is feeling well. Denies any acute concerns. ROS Const Constitutional: Positive for weight change (gain); No fatigue ENT ENT: No dizziness/vertigo Cardio Cardiology: No chest pain at rest, chest pain with exertion, shortness of breath or palpitations Skin Skin: No wounds Endo Endocrine: Positive for weight change (gain); No fatigue Exam Const General: cooperative, healthy appearing, comfortable and no acute distress Nutritional Appearance: obese Orientation: alert, awake and oriented x3 HENMT Head: normal to inspection Ears: hearing grossly normal bilaterally Nose: external nose normal Face and sinus: normal facial exam Eyes General: appearance normal, both eyes and all related structures Eyelids: eyelids normal Sclera: sclerae normal Neck Neck: normal visual inspection Resp Effort Inspection: normal respiratory effort, able to speak in complete sentences, symmetric chest movement, normal respiratory pattern, no audible wheezes and no cough Auscultation: Bilateral: Clear to Auscultation Cardio Rate: regular rate Rhythm: regular rhythm Heart Sounds: S1 normal and S2 normal GI Inspection: obesity Musc Cervical Spine: normal cervical lordosis Thoracic/Lumbar Spine: thoracic and lumbar spine normal to inspection Skin General: no rashes or lesions noted Lesions: no lesions Rashes: no rashes Trauma: no lacerations or abrasions Wounds: no wounds Neuro General: patient alert, patient awake and patient oriented x3 Cognition: normal cognition Speech: speech normal Gait: normal gait Extrem General: normal to inspection and no pedal edema Psych Appearance: grossly no (more content not included)... Normal [facility] 36on 11-27-2024 36 Pended Recent Visits Date Type Provider Dept 08/13/24 Office Visit Guillermo Cheng DO [facility] 02/08/24 Office Visit Guillermo Cheng DO [facility] Showing recent visits within past 365 days and meeting all other requirements Future Appointments Date Type Provider Dept 05/05/25 Appointment DO [facility] Showing future appointments within next 90 days and meeting all other requirements Requested Prescriptions Pending Prescriptions Disp Refills lisinopril 30 MG tablet [Pharmacy Med Name: Lisinopril 30mg Tablet] 90 tablet 1 Sig: Take 1 tablet by mouth daily. Provider: Guillermo Cheng DO Verified pharmacy: yes Verified day(s) supplied: yes Verified refill(s) needed (previous prescription showing no refills in chart): Yes Have you received any controlled medications from any other provider? N/A Overdue for visit: N/A If yes - patient scheduled? N/A Most recent labs completed in chart? N/A None Normal [facility] 25-hydroxyvitamin D3 [Mass/V ol]on 08-30-2024 25-hydroxyvitamin D [Mass/Vol] 23 ng/mL Low 30 - 100 ng/mL [facility] Comment on above: Vitamin D Status 25- [place] Vitamin D: Deficiency: <20 ng/mL Insufficiency: 20 - 29 ng/mL Optimal: > or = 30 ng/mL For 25-OH Vitamin D testing on patients on D2-supplementation and patients for whom quantitation of D2 and D3 fractions is required, the QuestAssureD(TM) 25-OH VIT D, (D2,D3), LC/MS/MS is recommended: order code 60330 (patients >2yrs). See Note 1 Note 1 For additional information, please refer to http://education.[employer]/faq/RHA750 (This link is being provided for informational/ educational purposes only.) Comprehensive metabolic 1998 panelon 08-30-2024 Albumin [Mass/Vol] 4.4 g/dL 3.6 - 5.1 g/dL [facility] Albumin/Globulin [Mass ratio] 2 {ratio} [facility] ALP [Catalytic activity/Vol] 69 U/L 36 - 130 U/L [facility] ALT [Catalytic activity/Vol] 26 U/L 9 - 46 U/L [facility] AST [Catalytic activity/Vol] 28 U/L 10 - 40 U/L [facility] Bilirubin [Mass/Vol] 0.5 mg/dL 0.2 - 1 .2 mg/dL [facility] Calcium [Mass/Vol] 9.2 mg/dL 8.6 - 10. 3 mg/dL [facility] Chloride [Moles/Vol] 106 mmol/L 98 - 11 0 mmol/L [facility] CO2 [Moles/Vol] 26 mmol/L 20 - 32 mmol/L [facility] Creatinine [Mass/Vol] 1.08 mg/dL 0.60 - 1.29 mg/dL [facility] GFR/1.73 sq M.predicted among non-blacks MDRD (S/P/Bld) [Vol rate/Area] 88 mL/min/{1.73_m2} > OR = 60 mL/min/1.73m2 [facility] Globulin (S) [Mass/Vol] 2.2 g/dL [facility] Glucose [Mass/Vol] 117 mg/dL High 65 - 99 mg/dL [facility] Comment on above: Fasting reference interval For someone without known diabetes, a glucose value between 100 and 125 mg/dL is consistent with prediabetes and should be confirmed with a follow-up test. Potassium [Moles/Vol] 4.4 mmol/L 3.5 - 5.3 mmol/L [facility] Protein [Mass/Vol] 6.6 g/dL 6.1 - 8.1 g/dL [facility] Sodium [Moles/Vol] 139 mmol/L 135 - 146 mmol/L [facility] Urea nitrogen [Mass/Vol] 25 mg/dL 7 - 25 mg/dL [facility] Urea nitrogen/Creatinine [Mass ratio] SEE NOTE: [facility] Comment on above: Not Reported: BUN an d Creatinine are within reference range. Lipid 1996 panelon 4 Cholesterol [Mass/Vol] 152 mg/dL NINF - 200 mg/dL [facility] Cholesterol in HDL [Mass/Vol] 55 mg/dL > OR = 40 [facility] Cholesterol in LDL [Mass/Vol] 81 mg/dL mg/dL (calc) [facility] Comment on above: Reference range: <10 0 Desirable range <100 mg/dL for primary prevention; <70 mg/dL for patients with CHD or diabetic patients with > or = 2 CHD risk factors. LDL-C is now calculated using the Jack calculation, which is a validated novel method providing better accuracy than the Friedewald equation in the estimation of LDL-C. Irvin LOMELI et al. LAVONNE. 2013;310(19): 1137-1396 (http://education.[employer]/faq/RPT131) Cholesterol non HDL [Mass/Vol] 97 mg/dL [facility] Comment on above: For patients with di abetes plus 1 major ASCVD risk factor, treating to a non-HDL-C goal of <100 mg/dL (LDL-C of <70 mg/dL) is considered a therapeutic option. Cholesterol.total/Ch olesterol in HDL [Mass ratio] 2.8 {ratio} [facility] Triglyceride [Mass/Vol] 77 mg/dL [facility] - 150 mg/dL [facility] No Panel Informationon 08-30 Interpretation and review of laboratory results Abnormal [facility] TSHon 08-30-2024 TSH Qn 2.85 m[IU]/L [facility] Endocrinology Visit Reporton 08-16-2024 Endocrinology Visit Report [facility] [address] [place] [address] OFFICE VISIT Date of Service: 08/16/24 MR#: [id number] Acct: [id number] Name: SATHYA MONTOYA Rep #: [id number] : 1980 Provider: ELINOR sharp Age/Sex: 43/M Location[place] [facility] Status: Signed Intake Vital Signs 05/17/24 15:07 08/16/24 15:30 Height 6 ft 3 in 6 ft 3 in Weight: 247 lb 242 lb BMI 30.9 30.2 BP 121/77 H 128/86 H Blood Pressure Location Lt brachial Rt brachial Position Sitting Sitting Respiration 16 Pulse 70 75 Pulse Source Monitor Monitor Temp 98.6 F Temp Source Temporal Pulse Oximetry (%) 96 97 Oxygen Delivery Method room air room air Intake Visit Reasons: 3 M FU Chief Complaint: f/u diabetes Is patient in pain?: No Allergies No Known Allergies Allergy (Verified 05/17/24 15:04) Medications ???Medication ???Instructions ???Recorded ???Confirmed ???Type multivitamin (Daily Multi-Vitamin 1 tab PO DAILY 08/05/22 08/16/24 History tablet) pen needle, diabetic 32 gauge x #100 ea 10/20/23 05/17/24 Rx (BD Ultra-Fine Sandie Pen Needle) rosuvastatin 10 mg tablet 10 mg PO DAILY 10/20/23 08/16/24 History lisinopril 30 mg tablet 30 mg PO DAILY 02/09/24 08/16/24 History insulin pump cartridge,automated #1 ea 02/28/24 05/17/24 Rx dose,BT with controller subcutaneous (Omnipod 5 G6 Intro Kit (Gen 5) subcutaneous cartridge with controller) sertraline 25 mg tablet 25 mg PO DAILY #30 tabs 05/17/24 08/16/24 Rx blood-glucose sensor (Dexcom G6 #9 ea 06/22/24 Rx Sensor device) blood-glucose transmitter (Dexcom #1 ea 06/22/24 Rx G6 Transmitter device) insulin lispro 100 unit/mL 100 unit subcut DAILY #90 mL 06/22/24 08/16/24 Rx subcutaneous solution insulin pump cart,automated,BT #10 ea 06/22/24 Rx (Omnipod 5 G6 Pods (Gen 5) subcutaneous cartridge) semaglutide 0.25 mg or 0.5 mg (2 0.5 mg (0.736 mL) subcut QWEEK #3 08/16/24 08/16/24 Rx mg/3 mL) subcutaneous pen injector mL (Ozempic) PFSH Medical History Lymphoma Hernia Family History Other CVA (cerebral vascular accident) Diabetes Hypertension Social History Smoking Status: Never smoker alcohol intake: current alcohol intake frequency: a few times a month Alcohol type: beer substance use type: does not use what type of physical activity do you participate in: other details: crossfit frequency: 5-6 times per week HPI HPI Chief Complaint: f/u diabetes Details: SATHYA MONTOYA, is a 43 M who presents to the office today for evaluation and management of diabetes. A1C today is 6.8%, improved from 05/17/24 at 7.9%. He has lost an additional 5 lbs. He has been on Omnipod 5 with Dexcom G6 for almost 4 months- he is pleased with system. Jonathono report downloaded and reviewed- he is entering carbs appropriately, he is not having significant low blood sugars. Reports he is feeling well. BP today is well controlled. Currently taking lisinopril 30 mg once daily. He takes a daily statin. At his last appointment he was placed on sertraline 25 mg once daily At that time he was reporting significant irritability, apathy, and loss of interest. He report significant improvement in mood. He is due for labs. Denies any acute concerns. ROS Const Constitutional: Positive for weight change (intentional loss); No fatigue ENT ENT: No dizziness/vertigo Cardio Cardiology: No chest pain at rest, chest pain with exertion, shortness of breath or palpitations Skin Skin: No wounds Endo Endocrine: Positive for weight change (intentional loss); No fatigue Exam Const General: cooperative, healthy appearing, comfortable and no acute distress Nutritional Appearance: obese Orientation: alert, awake and oriented x3 HENMT Head: normal to inspection Ears: hearing grossly normal bilaterally Nose: external nose normal Face and sinus: normal facial exam Eyes General: appearance normal, both eyes and all related structures Alignment and Position: alignment normal Sclera: sclerae normal Neck Neck: normal visual inspection Carotids: normal carotid upstroke Chest Chest palpation inspection: normal inspection of the chest Resp Effort Inspection: normal respiratory effort, able to speak in complete sentences, symmetric chest movement, normal respiratory pattern, no audible wheezes and no cough Auscultation: Bilateral: Clear to Auscultation Cardio Rate: regular rate Rhythm: regular rhythm Heart Sounds: S1 normal and S2 normal Bruits: no carotid bruits GI Inspection: obesity Musc Cervical Spine: normal (more content not included)... Normal [facility] Office Visiton 08-13-2024 Follow-up visit [id number] Sathya Montoya 1980 M Date Provider Department Center 08/13/2024 [id number] [facility] Family History Problem Relation Age of Onset Diabetes Mother Comments: insulin age 65 Dementia Father 65 Comments: non smoker High Blood Pressure Father Diabetes Father Comments: insulion amputated toes Stroke Father Comments: 07/31 brainstem CVA age 69 Diabetes Sister Comments: insulin Diabetes Maternal Grandmother Throat cancer Maternal Grandmother Diabetes Maternal Grandfather Diabetes Paternal Grandmother Suicide Paternal Grandfather Family Status - Relation Status Age at Mother Alive Father Sister Alive Daughter Alive Son Alive Maternal Grandmother Maternal Grandfather Paternal Grandmother Paternal Grandfather Level of Service:82674 SC OFFICE/OUTPATIENT ESTABLISHED LOW MDM 20 MIN Reason for Visit and Comments: Follow-up [586227] - Med check Flu Vaccine [189] - Patient has declined the flu vaccine Normal [facility] Progress Noteon 08-13-2024 Progress Note [facility] - [address] [facility] [id number] Visit type: Established Patient Reason for Visit: Follow-up (Med check) and Flu Vaccine (Patient has declined the flu vaccine ) Assessment / Plan: Sathya was seen today for follow-up and flu vaccine. Diagnoses and all orders for this visit: Essential hypertension (Primary) Comments: Stable, continue lisinopril and encourage weight loss Hypercholesteremia Comments: Stable, continue Crestor Anxiety and depression Comments: Stable, continue Zoloft Type 1 diabetes mellitus without complication (HCC) Other orders - lisinopril 30 MG tablet; Take 1 tablet (30 mg) by mouth daily for 360 doses. - rosuvastatin (Crestor) 10 MG tablet; Take 1 tablet (10 mg) by mouth Nightly for 360 doses. - sertraline (Zoloft) 25 MG tablet; Take 1 tablet (25 mg) by mouth daily. - Flu vaccine (FLUAD), trivalent, adjuvanted, preservative-free (ages 65+) Subjective: Patient ID: Sathya Montoya is a 43 y.o. male. HPI non-smoker with history of hypertension and type 1diabetes resents for overall checkup. A1c is improving on insulin pump. Blood pressure well with endocrine consultation. Was recently placed on Zoloft for anxiety and depression he feels it is very helpful. Had some work-related stress changing jobs again. His and children are well. 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 Trying to eat better and exercise appropriately. No cardiac or pulmonary concerns Review of Systems no recent change in vision or skin or feet. Denies recent earache sore throat or cough. Non-smoker. No excessive alcohol. No heartburn or dysphagia. No abdominal pain. Bowels are regular. No melena or blood. No dysuria. No claudication or unhealing skin lesions. No Known Allergies Current Outpatient Medications on File Prior to Visit Medication Sig Dispense Refill Insulin Lispro (Humalog) 100 UNIT/ML solution injection Inject under the skin. Ozempic, 0.25 or 0.5 MG/DOSE, 2 MG/3ML solution pen-injector 0.5 MG (0.8 ML) SUBCUTANEOUSLY EVERY WEEK therapeutic multivitamin-minerals (Theragran-M) tablet Take 1 tablet by mouth daily. [DISCONTINUED] lisinopril 30 MG tablet Take 1 tablet (30 mg) by mouth daily for 180 doses. 90 tablet 3 [DISCONTINUED] rosuvastatin (Crestor) 10 MG tablet Take 1 tablet (10 mg) by mouth Nightly for 90 doses. 90 tablet 3 [DISCONTINUED] sertraline (Zoloft) 25 MG tablet Take 25 mg by mouth daily. [DISCONTINUED] albuterol (Ventolin HFA) 108 (90 Base) MCG/ACT inhaler Inhale 2 puffs every 4 hours as needed for wheezing or shortness of breath. (Patient not taking: Reported on 08/13/2024) 8 g 5 [DISCONTINUED] BD Pen Needle Sandie 2nd Gen 32G X 4 MM misc [DISCONTINUED] Continuous Blood Gluc Sensor (FreeStyle Malcom 2 Sensor) misc Use qid and prn 1 each 1 [DISCONTINUED] Fiasp FlexTouch 100 UNIT/ML injection 12 units at meals and 6 units with snacks [DISCONTINUED] Levemir FlexPen 100 UNIT/ML pen INJECT 23 UNITS UNDER THE SKIN NIGHTLY. (Patient not taking: Reported on 08/13/2024) 100 mL 2 No current facility-administered medications on file prior to visit. Patient Active Problem List Diagnosis Essential hypertension Hypercholesteremia Anxiety and depression Type 1 diabetes mellitus without complication (HCC) Social History Tobacco Use Smoking status: Never Smokeless tobacco: Never Substance Use Topics Alcohol use: Yes Alcohol/week: 1.0 standard drink of alcohol Past Surgical History: Procedure Laterality Date HERNIA REPAIR Right 2017 robotic assisted, lap WISDOM TOOTH EXTRACTION 1997 WRIST SURGERY Left Lipoma removed from left wrist. Family History Problem Relation Name Age of Onset Diabetes Mother insulin age 65 Dementia Father Simon 65 non smoker High Blood Pressure Father Simon Diabetes Father Simon insulion amputated toes Stroke Father Simon 07/31 brainstem CVA age 69 Diabetes Sister insulin Diabetes Maternal Grandmother Throat cancer Maternal Grandmother Diabetes Maternal Grandfather Diabetes Paternal Grandmother Suicide Paternal Grandfather Objective: BP 126/74 Pulse 68 Temp 36.8 ?C (98.2 ?F) (Temporal) Ht 6' 2 (1.88 m) Wt 248 lb (112 kg) SpO2 96% BMI 31.84 kg/m? Physical Exam Vitals reviewed. Constitutional: General: He is not in acute distress. Appearance: He is not ill-appearing. HENT: Right Ear: Tympanic membrane normal. Left Ear: Tympanic membrane normal. Nose: No congestion or rhinorrhea. Mouth/Throat: Pharynx: No oropharyngeal exudate or posterior oropharyngeal erythema. Eyes: General: No scleral icterus. Neck: Vascular: No carotid bruit. Comments: No thyroid or neck masses Cardiovascular: Rate and Rhythm: Normal rate and regular rhythm. Pulses: Normal pulses. Heart sounds: Normal heart sounds. No murmur heard. Pulmonary: Effort: P (more content not included)... Normal [facility] CR Chest PA/LATon 10-12-2021 CR Chest PA/LAT [facility]: [id number] ACCESSION EXAM DATE/TIME PROCEDURE ORDERING PROVIDER [id number] 10/12/2021 12:17 EST CR Chest PA and LAT DO CHENG EUGENE F. CPT code 97653 Reason For Exam (CR Chest PA and LAT) cough, hx of covid Report CHEST X-RAY PA and lateral CLINICAL INDICATION: Cough PA and lateral radiographs of the chest were obtained. COMPARISON: None FINDINGS: The cardiac silhouette is within normal limits. No focal consolidation is seen within the lungs. No pleural effusion or pneumothorax is identified. The bony structures of the chest are unremarkable as visualized. IMPRESSION: No acute cardiopulmonary process. Report Dictated on Final Dictating Physician: MD BURNS JASON Signed Date and Time: 10/12/2021 12:36 pm Signed by: MD BURNS JASON Transcribed Date and Time: 10/12/2021 12:37 Normal [facility] Glucose,Bedsideon 09-30-2017 Glucose mass conc 229 mg/dL High 70-100 [facility] Comment on above: Result Comment: Test performed by glucose meter. Results may be 10%-15% lowerthan serum/plasma values. (CLIA ID [id number]) Performed By: #### B GLU ####[place] [place] [address] Glucose mass conc 153 mg/dL High 70-100 [facility] Comment on above: Result Comment: Test performed by glucose meter. Results may be 10%-15% lowerthan serum/plasma values. (CLIA ID [id number]) Performed By: #### B GLU ####[address] [place] [address] Basic Metabolic Panelon 12-1 Anion gap 12 mmol/L Normal [facility] Comment on above: Performed By: #### B MP3 ####[address] [place] [address] Calcium 9.7 mg/dL Normal 8.4-10.2 [facility] Comment on above: Performed By: #### B MP3 ####[address] [place] [address] CO2 27 mmol/L Normal 22-30 [facility] Comment on above: Performed By: #### B MP3 ####[address] [place] [address] Glucose mass conc 234 mg/dL High 70-100 [facility] Comment on above: Performed By: #### B MP3 ####[address] [place] [address] Urea nitrogen 22 mg/dL High 7-20 [facility] Comment on above: Performed By: #### B MP3 ####[address] [place] [address] Creatinine 0.96 mg/dL Normal 0.52-1.25 [facility] Comment on above: Performed By: #### B MP3 ####[address] [place] [address] eGFR (black) mL/min/{1.73_m2} Normal >60 [facility] Comment on above: Performed By: #### B MP3 ####[place] [address] [place] [address] eGFR (non-black) mL/min/{1.73_m2} Normal >60 [facility] Comment on above: Result Comment: Sour ce- MDRD equation with creatinine calibration to IDMS(NKDEP)eGFR not recommended for drug dose adjustment Performed By: #### B MP3 ####[id number] [place] [address] Potassium molar conc 4.8 mmol/L Normal 3.5-5.1 [facility] Comment on above: Performed By: #### B MP3 ####[address] [place] [address] Sodium 139 mmol/L Normal 137-145 [facility] Comment on above: Performed By: #### B MP3 ####[address] [place] [address] Chloride 101 mmol/L Normal 98-107 [facility] Comment on above: Performed By: #### B MP3 ####[address] [place] [address] Vital Signs Date Time Vital Sign Value Performing Clinician Facility 06-03-2025 13:24-0400 Body height 190.[address] Guillermo Cheng DO Work Phone: [facility] 06-03-2025 13:24-0400 Body mass index (BMI) [Ratio] 30.7 kg/m2 Dr. Guillermo Cheng DO Work Phone: [facility] 06-03-2025 13:24-0400 Body weight 111.[address] Guillermo Cheng DO Work Phone: [facility] 06-03-2025 13:24-0400 Diastolic blood pressure 74 mm[Hg] Dr. Guillermo Cheng DO Work Phone: [facility] 06-03-2025 13:24-0400 Heart rate 64 /min Dr. Guillermo Cheng DO Work Phone: [facility] 06-03-2025 13:24-0400 SaO2% (BldA) [Mass fraction] 95 % Dr. Guillermo Cheng DO Work Phone: [facility] 06-03-2025 13:24-0400 Systolic blood pressure 146 mm[Hg] Dr. Guillermo Cheng DO Work Phone: [facility] 02-11-2025 15:39-0400 Body height 188 cm Guillermo Cheng DO Work Phone: [facility] 02-11-2025 15:39-0400 Body mass index (BMI) [Ratio] 32.35 kg/m2 Guillermo Cheng DO Work Phone: [facility] 02-11-2025 15:39-0400 Body temperature 97.5 [degF] Guillermo Cheng DO Work Phone: [facility] 02-11-2025 15:39-0400 Body weight 114.31 kg Guillermo Cheng DO Work Phone: [facility] 02-11-2025 15:39-0400 Diastolic blood pressure 84 mm[Hg] Guillermo Cheng DO Work Phone: [facility] 02-11-2025 15:39-0400 Heart rate 69 /min Guillermo Cheng DO Work Phone: [facility] 02-11-2025 15:39-0400 SaO2% (BldA) [Mass fraction] 97 % Guillermo Cheng DO Work Phone: [facility] 02-11-2025 15:39-0400 Systolic blood pressure 145 mm[Hg] Guillermo Cheng DO Work Phone: [facility] 08-13-2024 16:13-0500 Diastolic blood pressure 74 mm[Hg] Guillermo Cheng DO Work Phone: [facility] 08-13-2024 16:13-0500 Heart rate 68 /min Guillermo Cheng DO Work Phone: [facility] 08-13-2024 16:13-0500 Systolic blood pressure 126 mm[Hg] Guillermo Cheng DO Work Phone: [facility] 08-13-2024 15:29-0500 Body height 188 cm Guillermo Cheng DO Work Phone: [facility] 08-13-2024 15:29-0500 Body mass index (BMI) [Ratio] 31.84 kg/m2 Guillermo Cheng DO Work Phone: [facility] 08-13-2024 15:29-0500 Body temperature 98.2 [degF] Guillermo Cheng DO Work Phone: [facility] 08-13-2024 15:29-0500 Body weight 112.49 kg Guillermo Cheng DO Work Phone: [facility] 08-13-2024 15:29-0500 SaO2% (BldA) [Mass fraction] 96 % Guillermo Cheng DO Work Phone: [facility] 02-08-2024 15:38-0400 Diastolic blood pressure 76 mm[Hg] Guillermo Cheng DO Work Phone: [facility] 02-08-2024 15:38-0400 Heart rate 68 /min Guillermo Cheng DO Work Phone: [facility] 02-08-2024 15:38-0400 Systolic blood pressure 128 mm[Hg] Guillermo Cheng DO Work Phone: [facility] 02-08-2024 15:02-0400 Body height 188 cm Guillermo Cheng DO Work Phone: [facility] 02-08-2024 15:02-0400 Body mass index (BMI) [Ratio] 32.35 kg/m2 Guillermo Cheng DO Work Phone: [facility] 02-08-2024 15:02-0400 Body temperature 97.5 [degF] Guillermo Cheng DO Work Phone: [facility] 02-08-2024 15:02-0400 Body weight 114.31 kg Guillermo Cheng DO Work Phone: [facility] 02-08-2024 15:02-0400 SaO2% (BldA) [Mass fraction] 95 % Guillermo Cheng DO Work Phone: [facility] 06-22-2023 15:27-0400 Diastolic blood pressure 78 mm[Hg] Guillermo Cheng DO Work Phone: [facility] 06-22-2023 15:27-0400 Heart rate 68 /min Guillermo Cheng DO Work Phone: [facility] 06-22-2023 15:27-0400 Systolic blood pressure 118 mm[Hg] Guillermo Cheng DO Work Phone: [facility] 06-22-2023 14:28-0400 Body height 186.7 cm Guillermo Cheng DO Work Phone: [facility] 06-22-2023 14:28-0400 Body mass index (BMI) [Ratio] 32.41 kg/m2 Guillermo Cheng DO Work Phone: [facility] 06-22-2023 14:28-0400 Body temperature 97.7 [degF] Guillermo Cheng DO Work Phone: [facility] 06-22-2023 14:28-0400 Body weight 112.95 kg Guillermo Cheng DO Work Phone: [facility] 06-22-2023 14:28-0400 SaO2% (BldA) [Mass fraction] 96 % Guillermo Cheng DO Work Phone: [facility] 12-08-2022 15:01-0500 Diastolic blood pressure 78 mm[Hg] Guillermo Cheng DO Work Phone: [facility] 12-08-2022 15:01-0500 Heart rate 68 /min Guillermo Ewinga DO Work Phone: [facility] 12-08-2022 15:01-0500 Systolic blood pressure 126 mm[Hg] Guillermo Ewinga DO Work Phone: [facility] 12-08-2022 14:06-0500 Body height 186.7 cm Guillermo Cheng DO Work Phone: [facility] 12-08-2022 14:06-0500 Body mass index (BMI) [Ratio] 31.1 kg/m2 Guillermo Cheng DO Work Phone: [facility] 12-08-2022 14:06-0500 Body temperature 96.91 [degF] Guillermo Cheng DO Work Phone: [facility] 12-08-2022 14:06-0500 Body weight 108.41 kg Guillermo Cheng DO Work Phone: [facility] 12-08-2022 14:06-0500 SaO2% (BldA) [Mass fraction] 98 % Guillermo Cheng DO Work Phone: [facility] Encounters Encounter Date Encounter Type Care Provider Facility Start: 07-22-2025 End: 07-23-2025 Orders Only Guillermo Rachel Magalloneusebio Work Phone: [facility] Start: 06-03-2025 End: 06-03-2025 Patient encounter procedure Mitzy ALDRICH -[facility] Work Phone: Start: 06-03-2025 End: 06-03-[address] Guillermo Cheng DO Work Phone: -[facility] Start: 03-01-2025 End: 03-01-2025 ambulatory [facility] Start: 02-12-2025 End: 02-12-2025 Telephone encounter Guillermo Rachel Magallonzaheerbo Work Phone: [facility] Comment on above: Orders (EMG/NCS) Start: 02-11-2025 End: 02-11-2025 Office outpatient visit 25 minutes Guillermo Rachel Syklar MADISON Work Phone: [facility] Comment on above: Essential hypertensi on (Primary Dx); Hypercholesteremia; Type 1 diabetes mellitus without complication (HCC); Anxiety and depression; Neuropathy of left upper extremity Start: 02-11-2025 End: 02-11-2025 ambulatory [facility] Start: 01-07-2025 End: 01-07-2025 ambulatory Mitzy Ramirez Facility:[facility] Start: 11-27-2024 End: 11-27-2024 Refill Guillermo Ewinga DO Work Phone: [facility] Start: 08-29-2024 End: 08-30-2024 Orders Only Mitzy Ramirez DIRECTOR OF RETAIL ANALYTICS - HIM CLERK Work Phone: [facility] Start: 08-16-2024 End: 08-16-2024 ambulatory Mitzy Ramirez Facility:[facility] Start: 08-13-2024 End: 08-13-2024 Office outpatient visit 15 minutes Guillermo Ramos Gildardoa DO Work Phone: [facility] Comment on above: Essential hypertensi on (Primary Dx); Hypercholesteremia; Anxiety and depression; Type 1 diabetes mellitus without complication (HCC) Start: 08-13-2024 End: 08-13-2024 ambulatory [facility] Start: 02-08-2024 End: 02-08-2024 Office outpatient visit 15 minutes Guillermo Ramos Gildardoa DO Work Phone: [facility] Comment on above: Essential hypertensi on (Primary Dx); Type 2 diabetes mellitus without complication, with long-term current use of insulin (CMS/HCC) (HCC); Hypercholesteremia Start: 02-03-2024 Refill Guillermo Ramos Naun lla DO Work Phone: [facility] Start: 10-16-2023 Orders Only Guillermo Ramos Naun lla DO Work Phone: [facility] Start: 10-13-2023 Orders Only Guillermo Ramos Naun lla DO Work Phone: [facility] Comment on above: Type 1 diabetes jeffrey itus without complication (CMS/HCC) (HCC) (Primary Dx) Start: 10-11-2023 End: 10-11-2023 Office outpatient visit 15 minutes Guillermo Ramos Gildardoa DO Work Phone: [facility] Comment on above: Bronchitis (Primary Dx) Start: 06-22-2023 End: 06-22-2023 Office outpatient visit 15 minutes Guillermo Cheng DO Work Phone: [facility] Comment on above: Essential hypertensi on (Primary Dx); Hypercholesteremia; Type 2 diabetes mellitus without complication, with long-term current use of insulin (CMS/HCC) ([facility]) Start: 05-31-2023 Refill Guillermo kaplan DO Work Phone: [facility] Start: 05-27-2023 Refill Guillermo kaplan DO Work Phone: [facility] Start: 01-28-2023 Telephone encounter Guillermo Sage raheembo DO Work Phone: [facility] Comment on above: Orders (Dr Ingram) Start: 12-08-2022 End: 12-08-2022 Office outpatient visit 15 minutes Guillermo Cheng DO Work Phone: [facility] Comment on above: Essential hypertensi on (Primary Dx); Hypercholesteremia; Type 1 diabetes mellitus without complication ([facility]/HCC) ([facility]) Start: 09-30-2017 Ambulatory [facility] [employer] [facility] Start: 09-27-2017 Ambulatory Luc [facility] [employer] [facility] Procedures Date Procedure Procedure Detail Performing Clinician Start: 02-11-2025 Ecg routine ecg w/le ast 12 lds w/i&r Guillermo Ramos Nauneusebio DO Work Phone: Start: 08-29-2024 Comprehensive metabo lic panel Mitzy Ramirez DIRECTOR OF RETAIL ANALYTICS - HIM CLERK Work Phone: Start: 08-29-2024 Lipid panel Mitzy tena DIRECTOR OF RETAIL ANALYTICS - HIM CLERK Work Phone: Start: 08-29-2024 End: 08-29-2024 Thyrotropin [Units/volume] in Serum or Plasma Mitzy Ramirez DIRECTOR OF RETAIL ANALYTICS - HIM CLERK Work Phone: Start: 08-29-2024 Lipid 1996 panel - S paxton or Plasma Mitzy Ramirez DIRECTOR OF RETAIL ANALYTICS - HIM CLERK Work Phone: Start: 04-21-2024 Lipid 1996 panel - S paxton or Plasma Guillermo Cheng DO Work Phone: Start: 10-18-2023 Thyrotropin [Units/v olume] in Serum or Plasma Guillermo Cheng DO Work Phone: Start: 10-12-2023 Lipid 1996 panel - S paxton or Plasma Guillermo Cheng DO Work Phone: Plan of Treatment Date Care Activity Detail Author Start: 2056 RSV Immunization for Adults (1 - 1-dose 75+ series) RSV Immunization for Adults (1 - 1-dose 75+ series) [facility] Start: 2046 Pneumococcal Vaccine : Pediatrics (0 to 5 Years) and At-Risk Patients (6 to 64 Years) (3 - PPSV23 if available, else PCV20) Pneumococcal Vaccine: Pediatrics (0 to 5 Years) and At-Risk Patients (6 to 64 Years) (3 - PPSV23 if available, else PCV20) [facility] Start: 2046 Pneumococcal Vaccine : Pediatrics (0 to 5 Years) and At-Risk Patients (6 to 64 Years) (3 of 3 - PPSV23 or PCV20) Pneumococcal Vaccine: Pediatrics (0 to 5 Years) and At-Risk Patients (6 to 64 Years) (3 of 3 - PPSV23 or PCV20) [facility] Start: 2041 RSV Immunization age d 60 or older (1 - 1-dose 60+ series) RSV Immunization aged 60 or older (1 - 1-dose 60+ series) [facility] Start: 2031 Pneumococcal Vaccine : Pediatrics (0 to 5 Years) and At-Risk Patients (6 to 49 Years) (3 of 3 - PCV20 or PCV21) Pneumococcal Vaccine: Pediatrics (0 to 5 Years) and At-Risk Patients (6 to 49 Years) (3 of 3 - PCV20 or PCV21) [facility] Start: 2031 Zoster Vaccines (1 o f 2) Zoster Vaccines (1 of 2) [facility] Start: 08-29-2025 Diabetes: Estimated Glomerular Filtration Rate for Kidney Health Diabetes: Estimated Glomerular Filtration Rate for Kidney Health [facility] Start: 08-29-2025 Diabetes: Urine Albumin-Creatinine Ratio for Kidney Health Diabetes: Urine Albumin-Creatinine Ratio for Kidney Health [facility] Start: 08-29-2025 Lipid panel Lipid Panel [facility] Start: 08-29-2025 Thyroid stimulating hormone measurement TSH Level [facility] Start: 08-14-2025 Depression Monitoring Depression Mon itoring [facility] Start: 08-13-2025 Diabetic foot examination Diabetes: Foot Exam [facility] Start: 06-10-2025 COVID-19 Vaccine () COVID-19 Vaccine () [facility] Start: 06-10-2025 Influenza vaccination Influenza Vacc ine (#1) [facility] Start: 04-21-2025 Diabetes: Estimated Glomerular Filtration Rate for Kidney Health Diabetes: Estimated Glomerular Filtration Rate for Kidney Health [facility] Start: 04-21-2025 Lipid panel Lipid Panel [facility] Start: 03-01-2025 End: 03-01-2025 Patient encounter procedure 03/01/2025 2:00 PM EDT Appointment [facility] [address] [place] [id number] Guillermo Cheng, DO [address] [place] [address] [facility] Start: 02-22-2025 Glaucoma screening Diabetes: R etinopathy Screening [facility] Start: 02-12-2025 End: 02-12-2026 NERVE CONDUCTION TEST WITH EMG NERVE CONDUCTION TEST WITH EMG Neurology Routine Neuropathy of left upper extremity Expected: 02/12/2025 (Approximate), Expires: 02/12/2026 [facility] Work Phone: Comment on above: Expected: 02/12/2025 (Approximate), Expires: 02/12/2026 Start: 02-11-2025 End: 02-11-2025 Patient encounter procedure 02/11/2025 3:30 PM EDT Office Visit [facility] [place] [address] [place] [address] Guillermo Cheng DO [address] [place] [address] [facility] [place] Start: 02-11-2025 End: 02-11-2026 CBC W Auto Differential panel - Blood CBC auto differential Lab Routine Type 1 diabetes mellitus without complication (HCC) Expected: 02/11/2025 (Approximate), Expires: 02/11/2026 [facility] Comment on above: Expected: 02/11/2025 (Approximate), Expires: 02/11/2026 Start: 02-11-2025 End: 02-11-2026 Comprehensive metabolic 1998 panel - Serum or Plasma Comprehensive metabolic panel Lab Routine Type 1 diabetes mellitus without complication (HCC) Expected: 02/11/2025 (Approximate), Expires: 02/11/2026 [facility] Work Phone: Comment on above: Expected: 02/11/2025 (Approximate), Expires: 02/11/2026 Start: 02-11-2025 End: 02-11-2026 Lipid 1996 panel - Serum or Plasma Lipid panel Lab Routine Hypercholesteremia Expected: 02/11/2025 (Approximate), Expires: 02/11/2026 [facility] Comment on above: Expected: 02/11/2025 (Approximate), Expires: 02/11/2026 Start: 02-10-2025 Depression Monitoring Depression [facility] Start: 10-18-2024 Hemoglobin A1c measurement Diabetes: Hemoglobin A1C [facility] Start: 10-18-2024 Thyroid stimulating hormone measurement TSH Level [facility] Start: 10-12-2024 Lipid panel Lipid Panel [facility] Start: 08-13-2024 End: 08-13-2024 Patient encounter procedure 08/13/2024 3:30 PM EST Office Visit [facility] [address] [place] [address] Guillermo Cheng DO [address] [place] [address] [facility] Start: 06-10-2024 COVID-19 Vaccine ( season) COVID-19 Vaccine ( season) [facility] Start: 06-10-2024 Influenza vaccination Influenz a Vaccine (Season Ended) [facility] Start: 04-09-2024 End: 02-07-2025 Comprehensive metabolic 1998 panel - Serum or Plasma Comprehensive metabolic panel Lab Routine Hypercholesteremia Expected: 04/09/2024 (Approximate), Expires: 02/07/2025 [facility] [employer] [facility] Work Phone: Comment on above: Expected: 04/09/2024 (Approximate), Expires: 02/07/2025 Start: 04-09-2024 End: 02-07-2025 Lipid 1996 panel - Serum or Plasma Lipid panel Lab Routine Hypercholesteremia Expected: 04/09/2024 (Approximate), Expires: 02/07/2025 [facility] [employer] Comment on above: Expected: 04/09/2024 (Approximate), Expires: 02/07/2025 Start: 02-23-2024 Glaucoma screening Diabetes: R etinopathy Screening [facility] Start: 02-08-2024 End: 02-08-2024 Patient encounter procedure 02/08/2024 3:00 PM EDT Office Visit [facility] Medicine [address] [place] [address] Guillermo Cheng DO [address] [place] [address] [facility] Start: 12-21-2023 End: 12-21-2023 Patient encounter procedure [facility] Start: 10-13-2023 End: 10-13-2024 Hemoglobin A1c measurement Hemoglobin A1c Lab Routine Type 1 diabetes mellitus without complication (CMS/HCC) (HCC) Expected: 10/13/2023 (Approximate), Expires: 10/13/2024 [facility] [employer] Work Phone: Comment on above: Expected: 10/13/2023 (Approximate), Expires: 10/13/2024 Start: 10-13-2023 End: 10-13-2024 Thyrotropin [Units/volume] in Serum or Plasma TSH Lab Routine Type 1 diabetes mellitus without complication (CMS/HCC) (HCC) Expected: 10/13/2023 (Approximate), Expires: 10/13/2024 [facility] [employer] Comment on above: Expected: 10/13/2023 (Approximate), Expires: 10/13/2024 Start: 06-22-2023 End: 06-22-2024 Comprehensive metabolic 1998 panel - Serum or Plasma Comprehensive metabolic panel Lab Routine Hypercholesteremia Expected: 06/22/2023 (Approximate), Expires: 06/22/2024 [facility] [employer] [facility] Work Phone: Comment on above: Expected: 06/22/2023 (Approximate), Expires: 06/22/2024 Start: 06-22-2023 End: 06-22-2024 Lipid 1996 panel - Serum or Plasma Lipid panel Lab Routine Hypercholesteremia Expected: 06/22/2023 (Approximate), Expires: 06/22/2024 [facility] [employer] Comment on above: Expected: 06/22/2023 (Approximate), Expires: 06/22/2024 Start: 06-15-2023 End: 06-15-2023 Patient encounter procedure [facility] Start: 06-10-2023 COVID-19 Vaccine ( season) COVID-19 Vaccine ( season) [facility] Start: 06-10-2023 Influenza vaccination [facility] Start: 12-08-2022 End: 12-09-2023 Lipid 1996 panel - Serum or Plasma Lipid panel Lab Routine Hypercholesteremia Expected: 12/08/2022 (Approximate), Expires: 12/09/2023 [facility] [employer] Work Phone: Comment on above: Expected: 12/08/2022 (Approximate), Expires: 12/09/2023 Start: 06-10-2022 Influenza vaccination Influenza Vacc ine (#1) [facility] Start: 02-04-2022 Hemoglobin A1c measurement Diabetes: Hemoglobin A1C [facility] Start: 02-04-2022 Urine screening for protein Diabetes: Urine Protein Screening [facility] Start: 05-06-2021 Hemoglobin A1c measurement Diabetes: Hemoglobin A1C [facility] Start: 09-29-2009 MMR Vaccines (1 of 1 - Standard series) MMR Vaccines (1 of 1 - Standard series) [facility] Start: 09-29-2009 Varicella vaccination [facility] Start: 2000 DTaP/Tdap/Td Vaccine s (1 - Tdap) DTaP/Tdap/Td Vaccines (1 - Tdap) [facility] Start: 2000 Hepatitis B Vaccines (1 of 3 - 19+ 3-dose series) Hepatitis B Vaccines (1 of 3 - 19+ 3-dose series) [facility] Start: 1999 Diabetes: Urine Albumin-Creatinine Ratio for Kidney Health Diabetes: Urine Albumin-Creatinine Ratio for Kidney Health [facility] Start: 1999 Hepatitis C screening Hepatitis C Sc reening [facility] Start: 1993 Depression Screening Depression Scre ening [facility] Start: 1991 Diabetic foot examination Diabetes: Foot Exam [facility] Start: 1991 Glaucoma screening Diabetes: R etinopathy Screening [facility] Start: 1991 Preventive dental service Diabetes: Dental Exam [facility] Start: 03-18-1982 COVID-19 Vaccine (#1) COVID-19 Vacci ne (#1) [facility] Start: 1981 Cyanocobalamin vitam in b-12 Vitamin B-12 [facility] Start: 1981 Diabetes: Celiac Disease Screening Diabetes: Celiac Disease Screening [facility] Start: 1981 Hepatitis B Vaccines (1 of 3 - 3-dose series) Hepatitis B Vaccines (1 of 3 - 3-dose series) [facility] Start: 1981 HIV screening HIV Screening [facility] Start: 1981 Lipid panel Lipid Panel [facility] Start: 1981 Thyroid stimulating hormone measurement TSH Level [facility] Immunizations Immunization Date Immunization Notes Care Provider Fa cility 08-13-2024 Seasonal trivalent influenza vaccine, adjuvanted, preservative free Guillermo Cheng DO Work Phone: [facility] 08-13-2024 influenza virus vacc ine, unspecified formulation Guillermo Cheng DO Work Phone: [facility] 08-17-2021 Influenza, High-dose Seasonal, Quadrivalent, Preservative Free Guillermo Cheng DO Work Phone: [facility] 08-17-2021 influenza virus vacc ine, unspecified formulation Guillermo Magallonlla DO Work Phone: [facility] [employer] 07-30-2020 influenza, injectabl e, quadrivalent, preservative free Guillermo Magallonlla DO Work Phone: [facility] 08-02-2019 influenza, injectabl e, quadrivalent, contains preservative Guillermo Magallonlla DO Work Phone: [facility] 06-17-2017 pneumococcal polysac charide vaccine, 23 valent Guillermo Magallonlla DO Work Phone: [facility] 12-15-2016 pneumococcal conjuga te vaccine, 13 valent Guillermo Magallonlla DO Work Phone: [facility] 07-25-2014 influenza, injectabl e, quadrivalent, contains preservative Guillermo Magallonlla DO Work Phone: [facility] 07-25-2014 influenza, seasonal, injectable Guillermo Magallonlla DO Work Phone: [facility] 09-01-2009 novel influenza-H1N1 -09, preservative-free, injectable Guillermo Magallonlla DO Work Phone: [facility] Payers Date Payer Category Payer Self-pay 2024 Unknown [id number] 2024 Commercial Managed Care - HMO [id number] 2024 Private Health Insurance [id number] 2011 Private Health Insurance Private Health Insurance [id number] Unknown [id number] Unknown [id number] Unknown [id number] Social History Date Type Detail Facility Start: 10-20-2023 Tobacco smoking stat us NHIS Never smoked tobacco [facility] Start: 12-08-2022 End: 02-11-2025 Alcohol intake Current drinker of alcohol (finding) [facility] Start: 12-08-2022 End: 08-13-2024 Alcohol intake [facility] Start: 1980 Sex Assigned At Not on file [facility] Start: 12-08-2022 End: 08-13-2024 Tobacco use panel [facility] Start: 07-29-2022 Gender identity Identifies as male gender (finding) [facility] Start: 11-28-2022 End: 06-22-2023 Exposure to SARS-CoV-2 (event) Not sure [facility] How often do you nee d to have someone help you when you read instructions, pamphlets, or other written material from your doctor or pharmacy [SILS] Never [facility] Has the [facility], oil, or water [employer] threatened to shut off services in your home in past 12Mo No [facility] Do you belong to any clubs or organizations such as jain groups, unions, fraternal or athletic groups, or school groups? Yes [facility] Are you now , , , , never or living with a partner? [facility] How often to you hav e a drink containing alcohol? 2-[address] [facility] How many standard dr inks containing alcohol do you have on a typical day? [address] [facility] How often do you hav e 6 or more drinks on 1 occasion? Never [facility] Do you feel stress - tense, restless, nervous, or anxious, or unable to sleep at night because your mind is troubled all the time - these days [OSQ] Only a little [facility] (I/We) worried wheth er (my/our) food would run out before (I/we) got money to buy more. Sometimes true [facility] Start: 05-10-2022 Sex Male (finding) [facility] Start: 1980 Sex Assigned At Male [facility] Medical Equipment Procedure Code Equipment Code Equipment Origin al Text Equipment Identifier Dates [id number] Start: 08-05-2022 End: 08-13-2024 Pen Needle, Diab etic (Bd Ultra-Fine Sandie Pen Needle) 32 gauge x 5/32 needle Start: 10-20-2023 Pen Needle, Diab etic (Bd Ultra-Fine Sandie Pen Needle) 32 gauge x /32 needle Start: 08-05-2022 End: 10-20-2023 Clinical Notes 12-08-2022 to 07-22-2025 Telephone Encounter - Linda Pacheco MA - 07/22/2025 11:36 AM EDTTelephone Encounter - Linda Pacheco MA - 07/22/2025 11:36 AM EDTTelephone Encounter - Sera Harris - 02/12/2025 7:46 AM EDT Note Date & Type Note Facility 07-22-2025 Telephone encounter Note Rx loaded [facility] 07-22-2025 Miscellaneous Notes Rx loaded documented in this encounter [facility] 03-01-2025 Note Name: Sathya Montoya Date of : 1980 Referring physician: Guillermo Cheng DO A report of nerve conduction studies and electromyography of the left upper extremity Date of service: March 01, 2025 Findings: Sensory nerve conduction studies disclosed a prolonged response latency in the left median nerve; the response amplitude was normal. Response latencies and amplitudes were normal in the left ulnar and radial nerves. With palmar stimulation, the left median nerve response latency was prolonged compared to both standard norms and the ipsilateral ulnar nerve palmar response latency, which was normal. A left [id number] nerve thumb comparison showed the median nerve response latency was significantly prolonged compared to the radial nerve response latency. Motor nerve conduction studies disclosed a prolonged distal latency in the left median nerve; the response amplitude was normal while the conduction velocity was slow. Distal latencies, response amplitudes and conduction velocities were normal in the left ulnar nerve to both abductor digiti minimi and first dorsal interosseus. Needle EMG examination disclosed normal spontaneous activity and voluntary motor unit potentials in the left biceps, triceps, pronator teres, extensor indicis proprius, first dorsal interosseus and abductor pollicis brevis. Interpretation: Nerve conduction studies and electromyography of the left upper limb disclosed evidence consistent with a left median neuropathy at or distal to the wrist (carpal tunnel syndrome), mild in degree electrophysiologically. Clinical correlation is advised. Brad Campbell MD Location: Testing was conducted at [facility] as an outpatient. [facility] 02-12-2025 Telephone encounter Note Orders pended for dx and doctor's signature [facility] 02-12-2025 Miscellaneous Notes Orders pended for dx and doctor's signature documented in this encounter [facility] 02-11-2025 History of Presen t illness Narrative Images from the original note were not included. [facility] - [address] [facility] [address] Visit type: Established Patient Reason for Visit: Follow-up (Med check) and Tingling (Left hand since Tuesday ) Assessment / Plan: Sathya was seen today for follow-up and tingling. Diagnoses and all orders for this visit: Essential hypertension (Primary) Comments: Uncontrolled, will increase lisinopril to 20 mg twice daily, BP check 4 weeks Orders: - ECG 12 lead; Future - ECG 12 lead Hypercholesteremia Comments: Stable, continue low-fat meals and Crestor check labs soon Orders: - Lipid panel; Future - Lipid panel Type 1 diabetes mellitus without complication (HCC) Comments: Uncontrolled, restart Jardiance and follow-up with endocrinology Orders: - Comprehensive metabolic panel; Future - CBC auto differential; Future - Comprehensive metabolic panel - CBC auto differential Anxiety and depression Comments: Stable, continue Zoloft Neuropathy of left upper extremity Comments: New onset, check EMG, where left wrist cock up splints and left tennis elbow wrap Other orders - rosuvastatin (Crestor) 10 MG tablet; Take 1 tablet (10 mg) by mouth Nightly for 360 doses. - sertraline (Zoloft) 25 MG tablet; Take 1 tablet (25 mg) by mouth daily. - Discontinue: lisinopril 20 MG tablet; One BID Subjective: Patient ID: Sathya Montoya is a 44 y.o. male. HPI type I diabetic on insulin and Jardiance history of hypertension hyperlipidemia presents for checkup. A1c not at goal and recently was placed on Jardiance. GLP-1 agonist were not covered by insurance. Has felt good except for having 3 to 4 months of left forearm pain with rotation. Also developing some numbness in the dorsum of his left wrist and thumb and first 2 fingers. It is worse in the morning. However it occurs all day. Denies exertional chest pain shortness of breath. Symptoms do not worsen with vigorous activity that he does not work. Able to workout aggressively lifting weights and running as well. Review of Systems no change in his vision. No recent earache sore throat or cough. No chest pain palpitations or dyspnea or jaw pain. Denies PND orthopnea claudication or edema. No abdominal pain. Bowels are regular. No melena or blood. No dysuria. No unhealing skin lesions. Very excited about taking his adopted daughter on vacation this summer. Will be taking his whole family to [place] and enjoying a cruise. He denies neck pain or increase of his pain and arm symptoms with Valsalva maneuvers. Rare use of NSAIDs or Tylenol no lower extremity complaints No Known Allergies Current Outpatient Medications: Continuous Glucose Sensor (Dexcom G6 Sensor) mis, 1 sensor every 10 days, Disp: , Rfl: Insulin Lispro (Humalog) 100 UNIT/ML solution injection, Inject under the skin., Disp: , Rfl: Jardiance 25 MG, Take 25 mg by mouth daily., Disp: , Rfl: therapeutic multivitamin-minerals (Theragran-M) tablet, Take 1 tablet by mouth daily., Disp: , Rfl: rosuvastatin (Crestor) 10 MG tablet, Take 1 tablet (10 mg) by mouth Nightly for 360 doses., Disp: 90 tablet, Rfl: 1 sertraline (Zoloft) 25 MG tablet, Take 1 tablet (25 mg) by mouth daily., Disp: 90 tablet, Rfl: 1 Patient Active Problem List Diagnosis Essential hypertension Hypercholesteremia Anxiety and depression Type 1 diabetes (HCC) Social History Tobacco Use Smoking status: Never Smokeless tobacco: Never Substance Use Topics Alcohol use: Yes Alcohol/week: 1.0 standard drink of alcohol Past Surgical History: Procedure Laterality Date HERNIA REPAIR Right 2017 robotic assisted, lap WISDOM TOOTH EXTRACTION 1998 WRIST SURGERY Left 2015 [place] Family History Problem Relation Name Age of Onset Diabetes Mother insulin age 65 Dementia Father Simon 65 non smoker High Blood Pressure Father Simon Diabetes Father Simon insulion amputated toes Stroke Father Simon 07/31 brainstem CVA age 69 Diabetes Sister oral rx Diabetes Maternal Grandmother Throat cancer Maternal Grandmother Diabetes Maternal Grandfather Diabetes Paternal Grandmother Suicide Paternal Grandfather Objective: BP (!) 145/84 (BP Location: Left arm, Patient Position: Sitting, BP Cuff Size: Large adult) Pulse 69 Temp 36.4 C (97.5 F) (Temporal) Ht 6' 2 (1.88 m) Wt 252 lb (114 kg) SpO2 97% BMI 32.35 kg/m Physical Exam The physical exam is generally normal. Patient appears well, alert and oriented x 3, pleasant, cooperative. Vitals are as noted. Neck supple, no carotid bruits abnormal adenopathy, thyroid lesions or masses.. Lungs are clear to auscultation. Heart is regular, without murmurs, gallops or ectopy. Abdomen is soft, non tender, without masses, hepatosplenomegaly, or bruits. Normal BS evident. Extremities are normal without edema. Peripheral pulses are good. No worrisome skin lesions. Screening neurological exam is normal without focal deficits. Negative Spurling's. All upper and lower extremity strength is normal. Reflexes: Both upper and lower extremities. No Roman's or Babinski. Some atrophy of the left thenar eminence. Equivocal Tinel's but negative Phalen's. There is pain with Tinel's of the lateral left elbow as well. Some weakness with supination and dorsiflexion of the left hand. Pulse color temperature is normal however. No fasciculations. documented in this encounter [facility] 02-11-2025 Instructions Guillermo Cheng DO - 02/11/2025 3:40 PM EDT Call with the number of lisinopril tablets you have so we can adjust the dosage. documented in this encounter [facility] 11-27-2024 Telephone encounter Note Pended Recent Visits Date Type Provider Dept 08/13/24 Office Visit Guillermo Cheng DO [facility] 02/08/24 Office Visit Guillermo Cheng DO [facility] Showing recent visits within past 365 days and meeting all other requirements Future Appointments Date Type Provider Dept 02/11/25 Appointment Guillermo Cheng DO [facility] Showing future appointments within next 90 days and meeting all other requirements Requested Prescriptions Pending Prescriptions Disp Refills lisinopril 30 MG tablet [Pharmacy Med Name: Lisinopril 30mg Tablet] 90 tablet 1 Sig: Take 1 tablet by mouth daily. Provider: Guillermo Cheng DO Verified pharmacy: yes Verified day(s) supplied: yes Verified refill(s) needed (previous prescription showing no refills in chart): Yes Have you received any controlled medications from any other provider? N/A Overdue for visit: N/A If yes - patient scheduled? N/A Most recent labs completed in chart? N/A None [facility] 11-27-2024 Miscellaneous Notes Pended Recent Visits Date Type Provider Dept 08/13/24 Office Visit Guillermo Cheng DO [facility] 02/08/24 Office Visit Guillermo Cheng DO [facility] Showing recent visits within past 365 days and meeting all other requirements Future Appointments Date Type Provider Dept 02/11/25 Appointment Guillermo Cheng DO [facility] Showing future appointments within next 90 days and meeting all other requirements Requested Prescriptions Pending Prescriptions Disp Refills lisinopril 30 MG tablet [Pharmacy Med Name: Lisinopril 30mg Tablet] 90 tablet 1 Sig: Take 1 tablet by mouth daily. Provider: Guillermo Cheng DO Verified pharmacy: yes Verified day(s) supplied: yes Verified refill(s) needed (previous prescription showing no refills in chart): Yes Have you received any controlled medications from any other provider? N/A Overdue for visit: N/A If yes - patient scheduled? N/A Most recent labs completed in chart? N/A None documented in this encounter [facility] 08-13-2024 History of Presen t illness Narrative Images from the original note were not included. [facility] - [address] [facility] [address] Visit type: Established Patient Reason for Visit: Follow-up (Med check) and Flu Vaccine (Patient has declined the flu vaccine ) Assessment / Plan: Sathya was seen today for follow-up and flu vaccine. Diagnoses and all orders for this visit: Essential hypertension (Primary) Comments: Stable, continue lisinopril and encourage weight loss Hypercholesteremia Comments: Stable, continue Crestor Anxiety and depression Comments: Stable, continue Zoloft Type 1 diabetes mellitus without complication (HCC) Other orders - lisinopril 30 MG tablet; Take 1 tablet (30 mg) by mouth daily for 360 doses. - rosuvastatin (Crestor) 10 MG tablet; Take 1 tablet (10 mg) by mouth Nightly for 360 doses. - sertraline (Zoloft) 25 MG tablet; Take 1 tablet (25 mg) by mouth daily. - Flu vaccine (FLUAD), trivalent, adjuvanted, preservative-free (ages 65+) Subjective: Patient ID: Sathya Montoya is a 43 y.o. male. HPI non-smoker with history of hypertension and type 1diabetes resents for overall checkup. A1c is improving on insulin pump. Blood pressure well with endocrine consultation. Was recently placed on Zoloft for anxiety and depression he feels it is very helpful. Had some work-related stress changing jobs again. His and children are well. 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 Trying to eat better and exercise appropriately. No cardiac or pulmonary concerns Review of Systems no recent change in vision or skin or feet. Denies recent earache sore throat or cough. Non-smoker. No excessive alcohol. No heartburn or dysphagia. No abdominal pain. Bowels are regular. No melena or blood. No dysuria. No claudication or unhealing skin lesions. No Known Allergies Current Outpatient Medications on File Prior to Visit Medication Sig Dispense Refill Insulin Lispro (Humalog) 100 UNIT/ML solution injection Inject under the skin. Ozempic, 0.25 or 0.5 MG/DOSE, 2 MG/3ML solution pen-injector 0.5 MG (0.8 ML) SUBCUTANEOUSLY EVERY WEEK therapeutic multivitamin-minerals (Theragran-M) tablet Take 1 tablet by mouth daily. [DISCONTINUED] lisinopril 30 MG tablet Take 1 tablet (30 mg) by mouth daily for 180 doses. 90 tablet 3 [DISCONTINUED] rosuvastatin (Crestor) 10 MG tablet Take 1 tablet (10 mg) by mouth Nightly for 90 doses. 90 tablet 3 [DISCONTINUED] sertraline (Zoloft) 25 MG tablet Take 25 mg by mouth daily. [DISCONTINUED] albuterol (Ventolin HFA) 108 (90 Base) MCG/ACT inhaler Inhale 2 puffs every 4 hours as needed for wheezing or shortness of breath. (Patient not taking: Reported on 08/13/2024) 8 g 5 [DISCONTINUED] BD Pen Needle Sandie 2nd Gen 32G X 4 MM misc [DISCONTINUED] Continuous Blood Gluc Sensor (FreeStyle Malcom 2 Sensor) misc Use qid and prn 1 each 1 [DISCONTINUED] Fiasp FlexTouch 100 UNIT/ML injection 12 units at meals and 6 units with snacks [DISCONTINUED] Levemir FlexPen 100 UNIT/ML pen INJECT 23 UNITS UNDER THE SKIN NIGHTLY. (Patient not taking: Reported on 08/13/2024) 100 mL 2 No current facility-administered medications on file prior to visit. Patient Active Problem List Diagnosis Essential hypertension Hypercholesteremia Anxiety and depression Type 1 diabetes mellitus without complication (HCC) Social History Tobacco Use Smoking status: Never Smokeless tobacco: Never Substance Use Topics Alcohol use: Yes Alcohol/week: 1.0 standard drink of alcohol Past Surgical History: Procedure Laterality Date HERNIA REPAIR Right 2017 robotic assisted, lap WISDOM TOOTH EXTRACTION 1997 WRIST SURGERY Left Lipoma removed from left wrist. Family History Problem Relation Name Age of Onset Diabetes Mother insulin age 65 Dementia Father Simon 65 non smoker High Blood Pressure Father Simon Diabetes Father Simon insulion amputated toes Stroke Father Simon 07/31 brainstem CVA age 69 Diabetes Sister insulin Diabetes Maternal Grandmother Throat cancer Maternal Grandmother Diabetes Maternal Grandfather Diabetes Paternal Grandmother Suicide Paternal Grandfather Objective: BP 126/74 Pulse 68 Temp 36.8 C (98.2 F) (Temporal) Ht 6' 2 (1.88 m) Wt 248 lb (112 kg) SpO2 96% BMI 31.84 kg/m Physical Exam Vitals reviewed. Constitutional: General: He is not in acute distress. Appearance: He is not ill-appearing. HENT: Right Ear: Tympanic membrane normal. Left Ear: Tympanic membrane normal. Nose: No congestion or rhinorrhea. Mouth/Throat: Pharynx: No oropharyngeal exudate or posterior oropharyngeal erythema. Eyes: General: No scleral icterus. Neck: Vascular: No carotid bruit. Comments: No thyroid or neck masses Cardiovascular: Rate and Rhythm: Normal rate and regular rhythm. Pulses: Normal pulses. Heart sounds: Normal heart sounds. No murmur heard. Pulmonary: Effort: Pulmonary effort is normal. Breath sounds: Normal breath sounds. Abdominal: General: Bowel sounds are normal. Palpations: Abdomen is soft. Tenderness: There is no abdominal tenderness. Comments: Without pain hepatosplenomegaly masses bruits or ascites. Femoral pulses are good Musculoskeletal: Right lower leg: No edema. Left lower leg: No edema. Comments: Bilateral foot exam revealed intact color, temperature, sensation, without skin breakdowns. Dorsalis pedis and posterior tibial pulses are adequate. Lymphadenopathy: Cervical: No cervical adenopathy. Skin: General: Skin is warm. Findings: No erythema, lesion or rash. Neurological: General: No focal deficit present. Mental Status: He is alert and oriented to person, place, and time. Sensory: No sensory deficit. Deep Tendon Reflexes: Reflexes normal. Psychiatric: Mood and Affect: Mood normal. Thought Content: Thought content normal. documented in this encounter [facility] 02-08-2024 History of Presen t illness Narrative Images from the original note were not included. [facility] [address] [place] [address] [facility] [address] Visit type: Established Patient Reason for Visit: Follow-up (6 month) Assessment / Plan: Sathya was seen today for follow-up. Diagnoses and all orders for this visit: Essential hypertension (Primary) Comments: Stable, continue lisinopril Type 2 diabetes mellitus without complication, with long-term current use of insulin ([facility]) (HCC) Comments: Uncontrolled, follow-up with endocrinology Hypercholesteremia Comments: Uncontrolled, obtain better glycemic control and continue Crestor. Orders: - Comprehensive metabolic panel; Future - Lipid panel; Future - Comprehensive metabolic panel - Lipid panel Other orders - rosuvastatin (Crestor) 10 MG tablet; Take 1 tablet (10 mg) by mouth Nightly for 90 doses. - lisinopril 30 MG tablet; Take 1 tablet (30 mg) by mouth daily for 180 doses. Subjective: Patient ID: Sathya Montoya is a 43 y.o. male. HPI suboptimally controlled type I diabetic on insulin and Ozempic presents for hypertension lipid management. Having a hard time continuing on Ozempic due to a few reasons. He plans to start it to obtain better diabetic control. Last A1c over 8. Sees endocrinology pretty routinely. Blood pressure has been elevated due to stress that he is encouraged over the last 2 years taking care of his father is 31 properties in the [place] area. Renovated a family diameter and getting some assistance from his sister. Things are getting better. He has been doing the property down to about 3 or 4 of them. Trying to make do but is dealing with low value homes and need renovation. 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 His 2 daughters well. He feels he has a loving but lazy teenage son. His is well and he still enjoys working out and is training for some short races. Review of Systems overall feeling pretty fair. No recent earache sore throat or cough. No chest pain or palpitations. No dyspnea on exertion PND orthopnea claudication or edema. No tingling in the extremities. No heartburn or abdominal pain. Bowels are regular. No melena or blood. No constipation or diarrhea. No dysuria hematuria unhealing skin lesions. No Known Allergies Current Outpatient Medications on File Prior to Visit Medication Sig Dispense Refill albuterol (Ventolin HFA) 108 (90 Base) MCG/ACT inhaler Inhale 2 puffs every 4 hours as needed for wheezing or shortness of breath. 8 g 5 Fiasp FlexTouch 100 UNIT/ML injection 12 units at meals and 6 units with snacks Levemir FlexPen 100 UNIT/ML pen INJECT 23 UNITS UNDER THE SKIN NIGHTLY. 100 mL 2 therapeutic multivitamin-minerals (Theragran-M) tablet Take 1 tablet by mouth daily. [DISCONTINUED] lisinopril 30 MG tablet Take 1 tablet (30 mg) by mouth daily for 180 doses. 90 tablet 1 [DISCONTINUED] rosuvastatin (Crestor) 10 MG tablet Take 1 tablet (10 mg) by mouth Nightly for 90 doses. 90 tablet 3 BD Pen Needle Sandie 2nd Gen 32G X 4 MM misc Continuous Blood Gluc Sensor (FreeStyle Malcom 2 Sensor) misc Use qid and prn 1 each 1 Ozempic, 0.25 or 0.5 MG/DOSE, 2 MG/3ML solution pen-injector 0.5 MG (0.8 ML) SUBCUTANEOUSLY EVERY WEEK [DISCONTINUED] Levemir FlexTouch 100 UNIT/ML pen Inject 23 Units under the skin Nightly. 3 mL 2 No current facility-administered medications on file prior to visit. Patient Active Problem List Diagnosis Type 2 diabetes mellitus (HCC) Essential hypertension COVID-19 virus infection Hypercholesteremia Social History Tobacco Use Smoking status: Never Smokeless tobacco: Never Substance Use Topics Alcohol use: Yes Alcohol/week: 1.0 standard drink of alcohol Past Surgical History: Procedure Laterality Date HERNIA REPAIR Right 2017 robotic assisted, lap WISDOM TOOTH EXTRACTION 1997 WRIST SURGERY Left Lipoma removed from left wrist. Family History Problem Relation Name Age of Onset Diabetes Mother insulin age 64 Dementia Father Simon 65 non smoker High Blood Pressure Father Simon Diabetes Father Simon insulion amputated toes Stroke Father Simon 07/31 brainstem CVA age 69 Diabetes Sister insulin Diabetes Maternal Grandmother Throat cancer Maternal Grandmother Diabetes Maternal Grandfather Diabetes Paternal Grandmother Suicide Paternal Grandfather Objective: BP 128/76 Pulse 68 Temp 36.4 C (97.5 F) (Temporal) Ht 6' 2 (1.88 m) Wt 252 lb (114 kg) SpO2 95% BMI 32.35 kg/m Physical Exam Vitals reviewed. Constitutional: General: He is not in acute distress. Appearance: Normal appearance. HENT: Right Ear: Tympanic membrane normal. Left Ear: Tympanic membrane normal. Nose: No congestion or rhinorrhea. Mouth/Throat: Pharynx: No oropharyngeal exudate or posterior oropharyngeal erythema. Eyes: General: No scleral icterus. Neck: Vascular: No carotid bruit. Cardiovascular: Rate and Rhythm: Normal rate and regular rhythm. Pulses: Normal pulses. Heart sounds: Normal heart sounds. No murmur heard. Pulmonary: Effort: Pulmonary effort is normal. Breath sounds: Normal breath sounds. Abdominal: General: Bowel sounds are normal. Palpations: Abdomen is soft. Tenderness: There is no abdominal tenderness. Comments: No hepatosplenomegaly masses bruits or ascites. Femoral pedal pulses are well Musculoskeletal: Right lower leg: No edema. Left lower leg: No edema. Lymphadenopathy: Cervical: No cervical adenopathy. Skin: General: Skin is warm. Findings: No lesion or rash. Neurological: General: No focal deficit present. Mental Status: He is alert and oriented to person, place, and time. Deep Tendon Reflexes: Reflexes normal. Psychiatric: Mood and Affect: Mood normal. Thought Content: Thought content normal. Judgment: Judgment normal. documented in this encounter [facility] 02-03-2024 Telephone encounter Note Recent Visits Date Type Provider Dept 06/22/23 Office Visit Guillermo Cheng DO [facility] Showing recent visits within past 365 days and meeting all other requirements Future Appointments Date Type Provider Dept 02/08/24 Appointment Guillermo Cheng DO [facility] Showing future appointments within next 90 days and meeting all other requirements Requested Prescriptions Pending Prescriptions Disp Refills Levemir FlexPen 100 UNIT/ML pen [Pharmacy Med Name: LEVEMIR FLEXPEN 100 UNIT/ML] 2 Sig: INJECT 23 UNITS UNDER THE SKIN NIGHTLY. Provider: Guillermo Cheng DO Verified pharmacy: yes Verified day(s) supplied: yes Verified refill(s) needed (previous prescription showing no refills in chart): No - unable to verify prescription refills in chart Have you received any controlled medications from any other provider? No Overdue for visit: No If yes - patient scheduled? Yes Most recent labs completed in chart? N/A [facility] 02-03-2024 Miscellaneous Notes Recent Visits Date Type Provider Dept 06/22/23 Office Visit Guillermo Cheng DO [facility] Showing recent visits within past 365 days and meeting all other requirements Future Appointments Date Type Provider Dept 02/08/24 Appointment Guillermo Cheng DO [facility] Showing future appointments within next 90 days and meeting all other requirements Requested Prescriptions Pending Prescriptions Disp Refills Levemir FlexPen 100 UNIT/ML pen [Pharmacy Med Name: LEVEMIR FLEXPEN 100 UNIT/ML] 2 Sig: INJECT 23 UNITS UNDER THE SKIN NIGHTLY. Provider: Guillermo Cheng DO Verified pharmacy: yes Verified day(s) supplied: yes Verified refill(s) needed (previous prescription showing no refills in chart): No - unable to verify prescription refills in chart Have you received any controlled medications from any other provider? No Overdue for visit: No If yes - patient scheduled? Yes Most recent labs completed in chart? N/A documented in this encounter [facility] 10-11-2023 History of Presen t illness Narrative Images from the original note were not included. [facility] [address] [place] [address] [address] [facility] [address] Dept: [phone] Dept Loc: [phone] Patient was identified and seen today via Telehealth by agreement and consent. I used the following Telehealth technology: Audio and video capabilities. Patient location: [place] Patient Location: work . This patient encounter is appropriate and reasonable under the circumstances: transportation issues . The patient has been advised of the potential risks and limitations of this mode of treatment (including but not limited to the absence of in-person examination) and has agreed to be treated in a remote fashion in spite of them. Any and all of the patient's/patient's family's questions on this issue have been answered and I have made no promises or guarantees to the patient. The patient has also been advised to contact this office for worsening conditions or problems, and seek emergency medical treatment and/or call 911 if the patient deems either necessary. The patient stated that they are currently in the state of [place]. If the patient is a minor, permission has been obtained by the parent or guardian for the patient to receive medical care at this visit. Assessment/Plan Diagnoses and all orders for this visit: Bronchitis (Primary) Other orders - albuterol (Ventolin HFA) 108 (90 Base) MCG/ACT inhaler; Inhale 2 puffs every 4 hours as needed for wheezing or shortness of breath. - doxycycline (Vibramycin) 100 MG capsule; Take 1 capsule (100 mg) by mouth 2 times daily for 10 days. Take with at least 8 ounces (large glass) of water, do not lie down for 30 minutes after On the video patient was alert and oriented. Able to walk around and talk without shortness of breath. Did have a dry cough. Somewhat of a wheeze as well. Had great color and no cyanosis or edema was noted by him or myself. No follow-ups on file. Patient instructed to call with any worsening or prolonged Sore throat, cough, chest pain, shortness of breath, body aches, fever, and diarrhea. Instructed to have him to do a COVID exam and call if positive. Also urged to purchase a home pulse oximeter and call if less than or equal 94%. Lots of liquids, [id number] sugar-free Robitussin and rest. Subjective Sathya Montoya is a 43 y.o. who presents on the video for a remote visit. Chief complaint: No chief complaint on file. Nonproductive cough and some sense of shortness of breath and wheezing for 1 week. HPI Type I diabetic on insulin presents with 7 days of nonproductive cough. Had body aches and fever initially but that has resolved. Some sense of shortness of breath and wheezing. Denies PND orthopnea or edema however. Did not do any COVID exam. Denies peculiar headache or fever. No otalgia but mild sore throat. No abdominal pain. No vomiting or diarrhea. Eating well, urinating well. Glucose levels in the 200 range postprandial. Will be seeing endocrinology in the near future. No Known Allergies [] PMH, allergies, and social history reviewed and updated as appropriate [] Medication list reviewed/updated [] Allergies reviewed/updated [] Problem list reviewed/updated [] Patient requests medication refills, see below for orders. Guillermo Cheng DO 10/11/2023 12:18 PM documented in this encounter [facility] 06-22-2023 History of Presen t illness Narrative Images from the original note were not included. [facility] [address] [facility] [address] Visit type: Established Patient Reason for Visit: Follow-up (6 month med check) Assessment / Plan: Sathya was seen today for follow-up. Diagnoses and all orders for this visit: Essential hypertension (Primary) Comments: Well-controlled, continue lisinopril Hypercholesteremia Comments: Well-controlled, continue Crestor Orders: - Comprehensive metabolic panel; Future - Lipid panel; Future - Comprehensive metabolic panel - Lipid panel Type 2 diabetes mellitus without complication, with long-term current use of insulin ([facility]) ([facility]) Comments: Uncontrolled, follow-up with endocrine anticipate increasing Ozempic continue Levemir and mealtime insulin Other orders - lisinopril 30 MG tablet; Take 1 tablet (30 mg) by mouth daily for 180 doses. - rosuvastatin (Crestor) 5 MG tablet; Take 1 tablet (5 mg) by mouth Nightly. Subjective: Patient ID: Sathya Montoya is a 42 y.o. male. HPI type I diabetic now on insulin and Ozempic per endocrinology presents for hypertension and lipid management. A1c unfortunately has been elevated. Recently began Ozempic but he noticed a big difference in 1 month. Feels good overall. Denies recent infections. His visual exam is normal. No skin breakdowns. Review of Systems feels well. No recent earache sore throat or cough. Non-smoker. No alcohol excess. Denies exertional chest pain shortness of breath cough PND orthopnea claudication or edema. No bowel changes. No melena or blood. No heartburn. No constipation diarrhea. No dysuria. Did have a episode of getting stung by multiple bees 3 days ago but they are healing. Taking OTC cortisone lotion. Has some fleeting sharp pains in his arm as he pulled away from the bee stings. Able to work physically demanding last 3 days without chest pain or exertional dyspnea or diaphoresis. No Known Allergies Current Outpatient Medications on File Prior to Visit Medication Sig Dispense Refill BD Pen Needle Sandie 2nd Gen 32G X 4 MM [facility] Continuous Blood Gluc Sensor (FreeStyle Malcom 2 Sensor) [facility] Use qid and prn 1 each 1 Fiasp FlexTouch 100 UNIT/ML injection 12 units at meals and 6 units with snacks Levemir FlexTouch 100 UNIT/ML pen Inject 23 Units under the skin Nightly. 3 mL 2 Ozempic, 0.25 or 0.5 MG/DOSE, 2 MG/3ML solution pen-injector 0.5 MG (0.8 ML) SUBCUTANEOUSLY EVERY WEEK therapeutic multivitamin-minerals (Theragran-M) tablet Take 1 tablet by mouth daily. [DISCONTINUED] lisinopril 30 MG tablet Take 1 tablet (30 mg) by mouth daily for 90 doses. 90 tablet 1 [DISCONTINUED] rosuvastatin (Crestor) 5 MG tablet Take 1 tablet (5 mg) by mouth Nightly. 90 tablet 1 No current facility-administered medications on file prior to visit. Patient Active Problem List Diagnosis Type 2 diabetes mellitus (HCC) Essential hypertension COVID-19 virus infection Hypercholesteremia Social History Tobacco Use Smoking status: Never Smokeless tobacco: Never Substance Use Topics Alcohol use: Yes Alcohol/week: 1.0 standard drink of alcohol Past Surgical History: Procedure Laterality Date HERNIA REPAIR Right 09/30/2017 robotic assisted, lap WISDOM TOOTH EXTRACTION 1997 WRIST SURGERY Left Lipoma removed from left wrist. Family History Problem Relation Name Age of Onset Diabetes Mother insulin age 64 Dementia Father Simon 70 non smoker High Blood Pressure Father Simon Diabetes Father Simon insulion amputated toes Stroke Father Simon 07/31 brainstem CVA age 69 Diabetes Sister insulin Diabetes Maternal Grandmother Throat cancer Maternal Grandmother Diabetes Maternal Grandfather Diabetes Paternal Grandmother Suicide Paternal Grandfather Objective: BP 118/78 Pulse 68 Temp 36.5 C (97.7 F) (Temporal) Ht 6' 1.5 (1.867 m) Wt 249 lb (113 kg) SpO2 96% BMI 32.41 kg/m Physical Exam he appears well. Recheck blood pressure excellent. No JVD adenopathy carotid bruits. Well-hydrated. Heart is regular without gallops murmurs or ectopy. Lungs are clear. Abdomen soft nontender without pain hepatosplenomegaly masses bruits or ascites. Pulses are excellent. Extremities are pink without edema. Posterior tibial pulses are well documented in this encounter [facility] 06-01-2023 Telephone encounter Note Rx loaded Last apt 12/08/22 [facility] 06-01-2023 Miscellaneous Notes Rx loaded Last apt 12/08/22 documented in this encounter [facility] 05-27-2023 Telephone encounter Note Rx loaded Last apt 12/08/22 [facility] 05-27-2023 Miscellaneous Notes Rx loaded Last apt 12/08/22 documented in this encounter [facility] 01-28-2023 Telephone encounter Note Called patient and left a detailed message on his voicemail and he ca call us back with any questions. [facility] 01-28-2023 Miscellaneous Notes Called patient and left a detailed message on his voicemail and he ca call us back with any questions. Orders pended for doctor signature Please assist Name of caller: Sathya Contact phone number: [phone] Relationship to Patient: patient Provider: Dr. Cheng Practice: [facility] Chief Complaint/Reason for Call: Pt would like a referral as to who to see for his eye exam. Pt states Dr. Cheng has requested him to get one and it has been 4 years since his last eye exam. Please call the pt with the referral. Thank you. Best time of day caller can be reached: any Patient advised that office/PCP has 24-48 business hours to return their call: Yes documented in this encounter [facility] 01-28-2023 Telephone encounter Note Orders pended for doctor signature [facility] 01-28-2023 Telephone encounter Note Please assist [facility] 01-28-2023 Telephone encounter Note Name of caller: Sathya Contact phone number: [phone] Relationship to Patient: patient Provider: Dr. Cheng Practice: [facility] Chief Complaint/Reason for Call: Pt would like a referral as to who to see for his eye exam. Pt states Dr. Cheng has requested him to get one and it has been 4 years since his last eye exam. Please call the pt with the referral. Thank you. Best time of day caller can be reached: any Patient advised that office/PCP has 24-48 business hours to return their call: Yes [facility] 12-08-2022 History of Presen t illness Narrative Images from the original note were not included. [facility] [address] [facility] [id number] Visit type: Established Patient Reason for Visit: Follow-up (6 month med check) Assessment / Plan: Sathya was seen today for follow-up. Diagnoses and all orders for this visit: Essential hypertension (Primary) Comments: Stable, continue lisinopril Hypercholesteremia Comments: Uncontrolled, better low-fat meals recheck lab in 6 months. Continue Crestor Orders: - Lipid panel; Future - Lipid panel Type 1 diabetes mellitus without complication (CMS/HCC) (HCC) Comments: Improved, continue current meds and follow-up with endocrinology Other orders - lisinopril 30 MG tablet; Take 1 tablet (30 mg) by mouth daily for 90 doses. - rosuvastatin (Crestor) 5 MG tablet; Take 1 tablet (5 mg) by mouth Nightly. Subjective: Patient ID: Sathya Montoya is a 42 y.o. male. HPI newly diagnosed type I diabetic male on insulin presents for hypertension and lipid management. Feels better presently on Levemir daily. Also taking mealtime insulin. Continuous glucose monitor has been very helpful. Recent A1c down to the mid 8 range. His LDL was elevated above 100 but normal CMP CBC TSH Review of Systems still exercising routinely. No hypoglycemic episodes. No headache or chest pain or palpitations. No cough PND orthopnea claudication or edema. No heartburn or dysphagia. Bowels are regular. No melena or blood. No dysuria. Overall pretty positive and feeling better on his insulin. He does note that his father suddenly of a brainstem stroke this past fall. No Known Allergies Current Outpatient Medications on File Prior to Visit Medication Sig Dispense Refill BD Pen Needle Sandie 2nd Gen 32G X 4 MM [facility] [place] Blood Gluc Sensor (FreeStyle Malcom 2 Sensor) [facility] Fiasp FlexTouch 100 UNIT/ML injection 12 units at meals and 6 units with snacks Levemir FlexTouch 100 UNIT/ML pen 23 units at bedtime therapeutic multivitamin-minerals (Theragran-M) tablet Take 1 tablet by mouth daily. [DISCONTINUED] lisinopril 30 MG tablet Take 30 mg by mouth daily. [DISCONTINUED] rosuvastatin (Crestor) 5 MG tablet Take 5 mg by mouth Nightly. No current facility-administered medications on file prior to visit. Patient Active Problem List Diagnosis Type 2 diabetes mellitus (HCC) Essential hypertension COVID-19 virus infection Hypercholesteremia Social History Tobacco Use Smoking status: Never Smokeless tobacco: Never Substance Use Topics Alcohol use: Yes Alcohol/week: 1.0 standard drink Past Surgical History: Procedure Laterality Date HERNIA REPAIR Right 09/30/2017 robotic assisted, lap WISDOM TOOTH EXTRACTION 1997 WRIST SURGERY Left Lipoma removed from left wrist. Family History Problem Relation Name Age of Onset Diabetes Mother insulin age 64 Dementia Father Simon 70 non smoker High Blood Pressure Father Simon Diabetes Father Simon insulion amputated toes Stroke Father Simon 07/31 brainstem CVA age 69 Diabetes Sister insulin Diabetes Maternal Grandmother Throat cancer Maternal Grandmother Diabetes Maternal Grandfather Diabetes Paternal Grandmother Suicide Paternal Grandfather Objective: BP 126/78 Pulse 68 Temp 36.1 C (96.9 F) (Temporal) Ht 6' 1.5 (1.867 m) Wt 239 lb (108 kg) SpO2 98% BMI 31.10 kg/m Physical Exam alert and cooperative. Well-hydrated. Nonicteric. Normal eardrums and oropharynx. No thyroid masses JVD carotid bruits or adenopathy. Reflexes normal. Heart is regular without gallops or murmurs. Lungs are clear. Abdomen soft nontender without pain hepatosplenomegaly masses or bruits. No ascites and femoral pulses are good. Extremities are pink without edema. Posterior tibial pulses are adequate documented in this encounter [facility] Evaluation note Diagnosis Type 1 diabetes mellitus without complication (CMS/HCC) (HCC) Type I (juvenile type) diabetes mellitus without mention of complication, not stated as uncontrolled [facility] Diagnosis Essential hypertension- Primary Unspecified essential hypertension Hypercholesteremia Pure hypercholesterolemia Type 2 diabetes mellitus without complication, with long-term current use of insulin (CMS/HCC) (HCC) [facility] Diagnosis Bronchitis- Primary Bronchitis, not specified as acute or chronic [facility] Diagnosis Type 1 diabetes mellitus without complication (CMS/HCC) (HCC)- Primary Type I (juvenile type) diabetes mellitus without mention of complication, not stated as uncontrolled [facility] Diagnosis Essential hypertension- Primary Unspecified essential hypertension Type 2 diabetes mellitus without complication, with long-term current use of insulin (CMS/HCC) (HCC) Hypercholesteremia Pure hypercholesterolemia [facility] Diagnosis Essential hypertension- Primary Unspecified essential hypertension Hypercholesteremia Pure hypercholesterolemia Anxiety and depression Type 1 diabetes mellitus without complication (HCC) Type I (juvenile type) diabetes mellitus without mention of complication, not stated as uncontrolled [facility] Essential hypertension- Primary Unspecified essential hypertension Hypercholesteremia Pure hypercholesterolemia Type 1 diabetes mellitus without complication (CMS/HCC) (HCC) Type I (juvenile type) diabetes mellitus without mention of complication, not stated as uncontrolled [facility] this [facility]* Diagnosis Essential hypertension- Primary Unspecified essential hypertension Hypercholesteremia Pure hypercholesterolemia Type 1 diabetes mellitus without complication (HCC) Type I (juvenile type) diabetes mellitus without mention of complication, not stated as uncontrolled Anxiety and depression Neuropathy of left upper extremity [facility] Neuropathy of left upper extremity- Primary [facility] noteNo assessment information availableSelect [facility] Work Phone: Reason for referral (narrative)* Consultation (Routine) - Pending Review Specialty Diagnoses / Procedures Referred By Tone hammer Referred To Contact Ophthalmology Diagnoses Type 1 diabetes mellitus without complication (CMS/HCC) ([facility]) Procedures SC OFFICE/OUTPATIENT [facility] 60-74 MINUTES Guillermo Cheng DO [address] [place] [id number] Abad Ingram MD [address] [place] [phone] Referral ID Status Reason Start Date Expiration Date Visits Requested Visits Authorized [id number] Pending Review Specialty Services Required 01/28/2023 01/28/2024 [facility] ([facility]arrative[facility]No reason for referral information availableSan [facility] Work Phone: Summary Purpose Family History Relationship Condition Age at Onset Recorded Date/T lexus Not Specified Diabetes mellitus Unknown Hypertension Unknown Cerebrovascular accident (CVA) Unknown Advance Directives No Advanced Directives Records FoundNo Advanced Directives Records FoundNo Advanced Directives Records FoundNo Advanced Directives Records Found Chief Complaint and Reason for Visit Chief Complaint Admit Date 5 M FU, RS 12/13June 03, 2025 1: 18pm Additional Source Comments (unrecognized sect ion and content) No Status Records FoundNo Status Records FoundNo Status Records FoundNo Status Records Found INFORMATION SOURCE (unrecogn ized section and content) DATE CREATED AUTHOR 04/04/2018 [facility] DATE CREATED AUTHOR AUTHOR'S ORGANIZ ATION 10/21/2021 [facility] DATE CREATED AUTHOR AUTHOR'S ORGANIZ ATION 06/04/2025 [facility] DATE CREATED AUTHOR AUTHOR'S ORGANIZ ATION 07/23/2025 [facility] Reason for Visit (unrecogniz ed section and content) Reason Onset Date Comments Orders 01/28/2023 Dr Ingram Reason Onset Date Comments Med Refill 05/27/2023 Reason Onset Date Comments Med Refill 05/31/2023 Reason Comments Follow-up 6 month med check Reason Comments Med Refill Reason Comments Follow-up 6 month Reason Comments Follow-up Med check Flu Vaccine Patient has declined the flu vaccine Reason Comments Follow-up Med check Tingling Left hand since Frid ay Reason Onset Date Comments Orders 02/12/2025 EMG/NCS Reason Onset Date Comments Med Refill 07/22/2025 Care Teams (unrecognized sec tion and content) Slot Floor Person Relationship Specialty Start Date End Date Guillermo Cheng DO [address] [place] [address] PCP - General 09/19/15 Slot Floor Person Relationship Specialty Start Date End Date Skylar Guillermo RamosDO [address] [place], [place] [phone] PCP - General 09/19/15 Slot Floor Person Relationship Specialty Start Date End Date Guillermo Cheng RachelDO [address], [place] [phone] PCP - General 09/19/15 Slot Floor Person Relationship Specialty Start Date End Date Guillermo Cheng, [address] [place] [address] PCP - General 09/19/15 Slot Floor Person Relationship Specialty Start Date End Date Guillermo Cheng, [address] [place] [address] PCP - General 09/19/15 Slot Floor Person Relationship Specialty Start Date End Date Guillermo Cheng, [address] [place] [phone] PCP - General 09/19/15 Slot Floor Person Relationship Specialty Start Date End Date Guillermo Cheng, [address] [place] [phone] PCP - General 09/19/15 Slot Floor Person Relationship Specialty Start Date End Date Guillermo Cheng, [address] [place] [phone] PCP - General 09/19/15 Slot Floor Person Relationship Specialty Start Date End Date Guillermo Cheng DO [address] [place] [id number] PCP - General 09/19/15 Slot Floor Person Relationship Specialty Start Date End Date Guillermo Cheng, [address] [place] [phone] PCP - General 09/19/15 Slot Floor Person Relationship Specialty Start Date End Date Guillermo Cheng, DO [address] [place] [phone] PCP - General 09/19/15 Slot Floor Person Relationship Specialty Start Date End Date Guillermo Cheng [address] [place] [phone] PCP - General 09/19/15 Team Status: Active Member Role/Relationship Status Dates Dr. Guillermo Cheng DO Primary Care Provider Active Team Status: Inactive Member Role/Relationship Status Dates Dr. Guillermo Cheng DO Primary Care Provider Active Start: June 03, 2025 End: June 03, 2025 Dr. Guillermo Cheng DO Referring Provider Active Start: June 03, 2025 End: June 03, 2025 ELINOR Luo Attending Provider Active Start: June 03, 2025 End: June 03, 2025 Slot Floor Person Relationship Specialty Start Date End Date Guillermo Cheng DO [address] [place] [phone] [facility] 09/19/15 Goals (unrecognized section and content) Goals may be documented in a n alternate section FOR RECORDS PERTAINING TO PATIENTS WHO ARE OR HAVE BEEN ENROLLED IN A CHEMICAL DEPENDENCY/SUBSTANCEABUSE PROGRAM, SOME INFORMATION MAY BE OMITTED. This clinical summary was aggregated from multiple sources. Caution should be exercised in using it in the provision of clinical care. This summary normalizes information from multiple sources, and as a consequence, information in this document may materially change the coding, format and clinical context of patient data. In addition, data may be omitted in some cases. CLINICAL DECISIONS SHOULD BE BASED ON THE PRIMARY CLINICAL RECORDS. [facility] [employer] provides no warranty or guarantee of the accuracy or completeness of information in this document.
== END 2025-08-17 11:48 | disposition home or self-care (01) ==
PROVIDERS: Emergency Provider Emergency Medicine; PCP Family Medicine; Visit Provider Emergency Medicine
DX: S43.401A Unspecified sprain of right shoulder joint, initial encounter (principal); W19.XXXA Unspecified fall, initial encounter
CPT/HCPCS: 73030; 99283